=== PATIENT | female | born 1950 | race Caucasian/White ===

== ENCOUNTER 2016-12-10 07:09 | Day surgery (SDC) | payer BC ==
[~2016-12-10 07:09] MED LIST: Buffered Lidocaine 0.9% SYRIN* 5 ML/SYR SYRINGE INTRADERM ONE
[2016-12-10] MEDS ORDERED: Albuterol/Ipratropium NEB.SOL* Albuterol 2.5 MG/Ipratropium 0.5 MG 3 ML ONE (07:32)
[2016-12-10] MEDS ORDERED: Buffered Lidocaine 0.9% SYRIN* 5 ML/SYR SYRINGE ONE (07:33)
[2016-12-10] MEDS ORDERED: ceFAZolin VIAL(*) 1 GM in NS 0.9% 50 ML* 50 ML IVPB ONE (08:00)
[2016-12-10] MEDS ORDERED: ceFAZolin 1 GM in Dextrose (*) 1 GM/50 ML BAG IVPB ONE (08:00)
[2016-12-10] MEDS ORDERED: ceFAZolin 2 GM PREMIX(*) 2 GM/50 ML BAG IVPB ONE (08:13)
[2016-12-10] MEDS ORDERED: Lidocaine 1% MPF wEPI 200,000* 30 ML SDV ONE ×2 (08:53→09:26)
[2016-12-10] MEDS ORDERED: Methylene Blue 1% (ANTIDOTE)* 10 MG/ML 1 ML SDV VIAL IVPB ONE (08:53)
[2016-12-10] MEDS ORDERED: Mineral Oil Sterile, TOPICAL* 25 ML BTL ONE (08:54)
[2016-12-10] MEDS ORDERED: Bupivacaine 0.25% EPI 200,000* 30 ML SDV ONE (08:54)
[2016-12-10] MEDS ORDERED: Midazolam* 1 MG/ML 2 ML VIAL (2 MG) ONE (08:57)
[2016-12-10] MEDS ORDERED: fentaNYL* 50 MCG/ML 2 ML VIAL (100 MCG VIAL) ONE (08:57)
[2016-12-10] MEDS ORDERED: Lidocaine 2% PF * 5 ML VIAL ONE (10:52)
[2016-12-10] MEDS ORDERED: Propofol* 10 MG/ML 20 ML BTL IV PUSH ONE (10:52)
[2016-12-10 11:13] VITALS: BP 137/63
== END 2016-12-10 11:44 | disposition home or self-care (01) ==
LOC: OR 07:09
PROVIDERS: ATTEND Plastic Surgery
PROC: 0JB10ZZ Excision of Face Subcutaneous Tissue and Fascia, Open Approach (ICD-10-PCS; 2016-12-10)
PROC: 0JQ10ZZ Repair Face Subcutaneous Tissue and Fascia, Open Approach (ICD-10-PCS; principal; 2016-12-10 08:45)
DX: C44.319 Basal cell carcinoma of skin of other parts of face (principal); Z95.0 Presence of cardiac pacemaker; I48.91 Unspecified atrial fibrillation; Z79.01 Long term (current) use of anticoagulants; I10 Essential (primary) hypertension; G47.33 Obstructive sleep apnea (adult) (pediatric); E66.01 Morbid (severe) obesity due to excess calories; J44.9 Chronic obstructive pulmonary disease, unspecified; E11.9 Type 2 diabetes mellitus without complications; Z79.4 Long term (current) use of insulin; Z87.891 Personal history of nicotine dependence
CPT/HCPCS: 88305; 88331; 88332; A9270-GY; J0690; J2001; J2250; J2704; J3010

== ENCOUNTER 2018-08-08 15:07 | Emergency (ER) | payer MEDICARE ==
--- NOTE | 2018-08-08 16:19 | UC ---
Knee Pain HPI - HPI Summary HPI Summary: 68 yo female presents with LEFT knee pain. She tells me that 3 days ago she developed left knee pain without known injury. She tells me that she has a long history of chronic joint inflammation and pain. She has had extensive work ups for this and "noone has ever been able to find a reason". Usually she rests the joint and takes tylenol and symptoms improve. She has not taken any tylenol for this, but has been resting and elevating. She is in the process of getting an appointment with a golf caddie for further eval of her chronic symptoms. Denies numbness, tingling, or injury. - History of Current Complaint Chief Complaint: UCLowerExtremity Stated Complaint: KNEE INJURY Time Seen by Provider: 08/08/18 16:15 Hx Obtained From: Patient Onset/Duration: Gradual Onset Severity Initially: Mild Severity Currently: Moderate Pain Intensity: 5 Pain Scale Used: 0-10 Numeric - Allergies/Home Medications Allergies/Adverse Reactions: Allergies Allergy/AdvReac Type Severity Reaction Status Date / Time AASHISH Inhibitors Allergy Unknown Verified 08/08/18 16:26 Reaction Details latex Allergy Unknown Verified 08/08/18 16:26 Reaction Details angiotensin receptor blockers Allergy Unknown Uncoded 08/08/18 16:26 Reaction Details PMH/Surg Hx/FS Hx/Imm Hx Endocrine History: Diabetes Cardiovascular History: Cardiac Disease, Hypertension, Congestive Heart Failure , Atrial Fibrillation GI/ History: Gastroesophageal Reflux - Surgical History Surgical History: Yes Surgery Procedure, Year, and Place: pacemaker implantation - dr lopez. cervical cryo . bilateral cataract extraction - Family History Known Family History: Positive: Unknown - Social History Lives: With Family Alcohol Use: Rare Substance Use Type: None Smoking Status (MU): Former Smoker Amount Used/How Often: 1ppd for 30 years When Did the Patient Quit Smoking/Using Tobacco: 1991 - Immunization History Most Recent Influenza Vaccination: fall 2013 Most Recent Tetanus Shot: unk Most Recent Pneumonia Vaccination: unk Review of Systems All Other Systems Reviewed And Are Negative: Yes Constitutional: Positive: Negative Skin: Positive: Negative Respiratory: Positive: Negative Cardiovascular: Positive: Negative Neurovascular: Positive: Negative Musculoskeletal: Positive: Other: - Left knee pain Neurological: Positive: Negative Psychological: Positive: Negative Physical Exam - Summary Physical Exam Summary: GENERAL: NAD. WDWN. No pain distress. SKIN: No rashes, sores, lesions, or open wounds. CHEST: No accessory muscle use. Breathing comfortably and in no distress. CV: . Pulses intact popliteal, PT, and DP. Cap refill <2seconds MSK: LEFT KNEE: Mild TTP at patella. FROM, but pain with extension. Strength 5/ 5. No edema or obvious bony deformities. Unable to perform specialized testing due to pt body habitus. NEURO: Alert. Sensations intact and symmetric B/L LEs PSYCH: Age appropriate behavior. Triage Information Reviewed: Yes Vital Signs: Initial Vital Signs Temp 99.4 F 08/08/18 16:03 Pulse 87 08/08/18 16:03 Resp 20 08/08/18 16:03 BP 185/101 08/08/18 16:03 Pulse Ox 82 08/08/18 16:03 Vital Signs Reviewed: Yes Knee Pain Course/Dx - Course Course Of Treatment: XR: REPORT AND IMPRESSION: #. Suprapatellar joint effusion without gross fat fluid level. #. No fracture evident. #. Osteophytosis. Mild medial joint space narrowing. #. Nonfocal soft tissue swelling. #. Peripheral vascular calcifications. I am unsure the cause of her knee pain, but she does have multiple significant comorbidities and is significantly overweight, therefore it is most likely an arthritic pain. Advised to RICE and take tylenol and will try her with a lidoderm patch. Advised to f/u with rheumatology as soon as possible. - Differential Dx/Diagnosis Provider Diagnosis: Left knee pain Discharge - Sign-Out/Discharge Documenting (check all that apply): Patient Departure All imaging exams completed and their final reports reviewed: Yes - Discharge Plan Condition: Stable Disposition: HOME Prescriptions: Lidocaine PATCH 5%* [Lidoderm 5% Patch*] 1 patch TRANSDERM DAILY PRN #1 box PRN Reason: Pain Patient Education Materials: Knee Pain (ED) Referrals: Val Husain MD [Primary Care Provider] - Ozzy Sam MD [Medical Doctor] - As Soon As Possible Additional Instructions: If you develop a fever, shortness of breath, chest pain, new or worsening symptoms - please call your PCP or go to the ED. Your blood pressure was high at todays visit. Please see your primary provider within 4 weeks for recheck and re-evaluation. May take tylenol as directed for your discomfort. Apply ice to your knee to reduce pain and swelling. Please follow up with Rheumatology as soon as possible - Billing Disposition and Condition Condition: STABLE Disposition: Home - Attestation Statements Provider Attestation: I was available for consult. This patient was seen by the IZZY. The patient was not presented to, seen by, or examined by me. -Ashu
[2018-08-08 18:02] VITALS: BP 140/84
== END 2018-08-08 18:00 | disposition home or self-care (01) ==
LOC: UCEAST 15:07
DX: M25.562 Pain in left knee (principal); M25.462 Effusion, left knee; M25.762 Osteophyte, left knee; I25.10 Atherosclerotic heart disease of native coronary artery without angina pectoris; I11.0 Hypertensive heart disease with heart failure; I48.91 Unspecified atrial fibrillation; Z95.0 Presence of cardiac pacemaker; Z88.8 Allergy status to other drugs, medicaments and biological substances; Z91.040 Latex allergy status; Z87.891 Personal history of nicotine dependence
CPT/HCPCS: 99212; G0463

== ENCOUNTER 2018-09-04 12:19 | Inpatient (IN) | payer MEDICARE ==
[2018-09-04] MEDS ORDERED: NS 0.9% 1000 ML** 1,000 ML IV ONE (12:33)
[2018-09-04] MEDS ORDERED: Ondansetron INJ* 2 MG/ML VIAL IV ONE (12:34)
--- NOTE | 2018-09-04 12:39 | ED ---
Abdominal Pain/Female - HPI Summary HPI Summary: Patient is a 68 y/o female brought in by EMS who presents to the ED c/o abdominal pain. For the past 3 days shes had abdominal pain, N/V/D, and generalized weakness. Patient has not been able to keep any food down. The pain has been constant. She rates the pain as a 10/10 in severity with movement, but the pain is alleviated by lying flat and is currently rated a 6/10. As per EMS, her abdomen is firm and distended. PMHx DM, HTN, HLD, stage 3 kidney disease, morbid obesity. - History of Current Complaint Stated Complaint: ADBOMINAL PAIN,NAUSA,VOMITTING PER EMS Hx Obtained From: Patient, EMS Onset/Duration: Gradual Onset, Lasting Days - 3, Still Present Timing: Constant Severity Currently: Moderate Pain Intensity: 6 Pain Scale Used: 0-10 Numeric Location: Diffuse Aggravating Factor(s): Movement Alleviating Factor(s): Other: - Lying flat Allergies/Adverse Reactions: Allergies Allergy/AdvReac Type Severity Reaction Status Date / Time AASHISH Inhibitors Allergy Unknown Verified 08/08/18 16:26 Reaction Details latex Allergy Unknown Verified 08/08/18 16:26 Reaction Details angiotensin receptor blockers Allergy Unknown Uncoded 08/08/18 16:26 Reaction Details PMH/Surg Hx/FS Hx/Imm Hx Endocrine/Hematology History: Reports: Hx Diabetes, Hx Anemia - hx of, no longer takes iron Cardiovascular History: Reports: Hx Congestive Heart Failure, Hx Hypercholesterolemia, Hx Hypertension - on med, Hx Pacemaker/ICD, Other Cardiovascular Problems/Disorders - a-fib Denies: Hx Angina, Hx Coronary Artery Disease, Hx Myocardial Infarction, Hx Valvular Heart Disease Respiratory History: Reports: Hx Chronic Obstructive Pulmonary Disease (COPD), Hx Sleep Apnea - cpap, Other Respiratory Problems/Disorders - continuous oxygen at 4lpm Denies: Hx Asthma History: Reports: Other Problems/Disorders - stage 3 kidney disease Musculoskeletal History: Reports: Hx Arthritis - pt unsure Sensory History: Reports: Hx Cataracts - reports bilateral, Hx Contacts or Glasses - readers Denies: Hx Hearing Aid Opthamlomology History: Reports: Hx Cataracts - reports bilateral, Hx Contacts or Glasses - readers Neurological History: Reports: Other Neuro Impairments/Disorders - diabetic neuropathy - Cancer History Hx Chemotherapy: No Hx Radiation Therapy: No - Surgical History Surgery Procedure, Year, and Place: pacemaker implantation - dr lopez. cervical cryo 1969'. bilateral cataract extraction Hx Anesthesia Reactions: No - Immunization History Date of Tetanus Vaccine: PT STATES UNSURE Date of Influenza Vaccine: NONE Infectious Disease History: No Infectious Disease History: Denies: Traveled Outside the [place] in Last 30 Days - Family History Known Family History: Positive: Unknown - adopted - Social History Alcohol Use: Rare Hx Substance Use: No Substance Use Type: Reports: None Hx Tobacco Use: Yes Smoking Status (MU): Former Smoker Amount Used/How Often: 1ppd for 30 years Review of Systems Positive: Abdominal Pain, Vomiting, Diarrhea, Nausea Positive: Weakness - generalized All Other Systems Reviewed And Are Negative: Yes Physical Exam - Summary Physical Exam Summary: Appearance: chronically-ill appearing, mild pain distress Skin: warm, dry, reflects adequate perfusion Head/face: normal Eyes: EOMI, ERIC ENT: mucous membranes moist Neck: supple, non-tender Respiratory: CTA, breath sounds present, breathing unlabored Cardiovascular: tachycardic but regular rhythm, pulses symmetrical, no significant LE edema Abdomen: non-tender, rotund, grossly distended, firm Bowel Sounds: present Musculoskeletal: normal, strength/ROM intact Neuro: normal, sensory motor intact, A&Ox3 Triage Information Reviewed: Yes Vital Signs On Initial Exam: Initial Vitals Temp Pulse Resp BP Pulse Ox 101.3 F 102 19 112/68 94 09/04/18 12:22 09/04/18 12:22 09/04/18 12:22 09/04/18 12:22 09/04/18 12:22 Vital Signs Reviewed: Yes Diagnostics - Vital Signs Vital Signs Temp Pulse Resp BP Pulse Ox 09/04/18 12:22 101.3 F 102 19 112/68 94 - Laboratory Result Diagrams: 09/04/18 13:01 09/04/18 13:01 Lab Statement: Any lab studies that have been ordered have been reviewed, and results considered in the medical decision making process. - CT CT A/P CT Interpretation Completed By: Radiologist Summary of CT Findings: SMALL BOWEL OBSTRUCTION. PERICARDIAL EFFUSION. ATHEROSCLEROSIS. ED physician reviewed radiology report. - Ultrasound No standard instances Ultrasound Interpretation Completed By: ED Physician Summary of Ultrasound Findings: US performed at bedside by ED physician. Abdomen US: no ascites. - EKG 13:06 Cardiac Rate: Other Rate - Paced rhythm - [address] Segment: Non-Specific Summary of EKG Findings: Nl axis Abdominal Pain Fem Course/Dx - Course Course Of Treatment: Nurse's notes reviewed. Patient with distended abdomen with vomiting. CT scan consistent with small bowel obstruction. NG tube placed. Discussed with surgery who will follow in the hospital. Hospitalist to admit. Stable on admission. - Diagnoses Differential Diagnosis: Positive: Bowel Obstruction, Constipation, Diverticulitis, Other - AGE Provider Diagnoses: Small bowel obstruction - Provider Notifications Discussed Care Of Patient With: Faraz Nunez Time Discussed With Above Provider: 13:56 Instructed by Provider To: Other - Dr. Nunez will see the pt for a consult on the floor. At 14:37 Dr. Killian accepts pt for admission. Discharge - Sign-Out/Discharge Documenting (check all that apply): Patient Departure - Admit Patient Received Moderate/Deep Sedation with Procedure: No - Discharge Plan Condition: Fair Disposition: ADMITTED TO [facility] Referrals: Val Husain MD [Primary Care Provider] - - Billing Disposition and Condition Condition: FAIR Disposition: Admitted to [facility] - Attestation Statements Document Initiated by Yanete: Yes Documenting Scribe: Nicolle Barraza Provider For Whom Scribe is Documenting (Include Credential): Danny Maxwell MD Scribe Attestation: Nicolle Beltran scribed for Danny Maxwell MD on 09/04/18 at 1533. Scribe Documentation Reviewed: Yes Provider Attestation: The documentation as recorded by the Nicolle breaux accurately reflects the service I personally performed and the decisions made by mi, Danny Maxwell MD Status of Scribe Document: Viewed
[2018-09-04] MEDS ORDERED: LORazepam INJ* 2 MG/ML 1 ML VIAL IV PUSH ONE (12:53)
[2018-09-04 13:09] LABS: Hematocrit 39 % (33-41); Hemoglobin 12.6 g/dL (12.0-16.0); Mean Corpuscular HGB Conc 33 g/dL (31-36); Mean Corpuscular Hemoglobin 28 pg (27-31); Mean Corpuscular Volume 84 fL (80-97); Mean Platelet Volume 8.2 fL (7.4-10.4); Platelet Count 342 10^3/uL (150-450); Red Blood Count 4.58 10^6 /uL (3.70-4.87); Red Cell Distribution Width 17 % (10.5-15); White Blood Count 14.4 10^3/uL (3.5-10.8)
[2018-09-04 13:14] LABS: INR 2.26 (0.77-1.02)
[2018-09-04 13:26] LABS: ALT 11 U/L (7-52); AST 19 U/L (13-39); Albumin/Globulin Ratio 0.8 (1-3); Alkaline Phosphatase 116 U/L (34-104); Anion Gap 12 mmol/L (2-11); BUN/Creatinine Ratio 17.6 (8-20); Blood Urea Nitrogen 36 mg/dL (6-24); C Reactive Protein 273.55 mg/L (<8.01); CO2 Carbon Dioxide 24 mmol/L (22-32); Calcium 8.4 mg/dL (8.6-10.3); Chloride 97 mmol/L (101-111); EGFR African American 29.5 (>60); EGFR Non-African American 24.4 (>60); Glucose 154 mg/dL (70-100); Potassium 3.2 mmol/L (3.5-5.0); Sodium 133 mmol/L (135-145)
[2018-09-04 13:32] LABS: ABS Basophils 0 10^3/ul (0-0.2); ABS Eosinophils 0 10^3/ul (0-0.6); ABS Lymphocytes 0.3 10^3/ul (1.0-4.8); ABS Nucleated RBC 0 10^3/ul; Eosinophil % 0 %; Lymphocyte % 2.2 %; Nucleated Red Blood Cells % 0.1
[2018-09-04] MEDS ORDERED: NS 0.9% 1000 ML** 1,000 ML IV SCH (17:30)
[2018-09-04] MEDS ORDERED: Acetaminophen SUPP* 650 MG SUPP PR PRN (17:37)
[2018-09-04 17:44] LABS: Magnesium 1.7 mg/dL (1.9-2.7)
[2018-09-04] MEDS ORDERED: Dextrose 50% Syringe 50 ML* 25 GM/50 ML SYRINGE IV PUSH PRN (17:45)
[2018-09-04] MEDS ORDERED: Metoprolol Tartrate IV* 1 MG/ML 5 ML VIAL IV SCH (18:00)
[2018-09-04] MEDS ORDERED: Insulin GLARGINE(*) 1 UNITS UNIT SUBCUT SCH (18:00)
[2018-09-04 18:11] LABS: Influenza A Molecular NEGATIVE (Negative); Influenza B Molecular NEGATIVE (Negative)
[2018-09-04] MEDS ORDERED: Zosyn per Pharmacy* NOTE FOLLOW UP PRN (18:20)
[2018-09-04 18:21] LABS: Urine Appearance Cloudy; Urine Bacteria Absent (Absent); Urine Bilirubin Negative (Negative); Urine Blood 1+ (Negative); Urine Color Amber; Urine Glucose 2+(150 mg/dL) (Negative); Urine Ketones Negative (Negative); Urine Nitrite Negative (Negative); Urine Protein 3+(>=500 mg/dL) (Negative); Urine Red Blood Cell Trace(0-2/hpf) (Absent); Urine Specific Gravity 1.019 (1.010-1.030); Urine Urobilinogen Negative (Negative); Urine White Blood Cell Trace(0-5/hpf) (Absent)
[2018-09-04] MEDS ORDERED: Heparin DRIP 25,000 UNITS(*) 25,000 UNITS/500 ML BAG IV SCH (18:30)
[2018-09-04] MEDS ORDERED: Heparin VIAL(*) 5000 UNITS/ML VIAL (FIVE THOUSAND) IV PRN (18:58)
[2018-09-04] MEDS ORDERED: ZOSYN 3.375 GM x ONE DOSE over 30 miuntes IVPB ×2 (19:00)
[2018-09-04] MEDS ORDERED: Piperacillin/Tazobactam VIAL*) 3.375 GM/15 ML VIAL IVPB SCH (19:00)
[2018-09-04] MEDS ORDERED: KCL 20 MEQ/100 ML IVPREMIX* 20 MEQ/100 ML BAG IV ONE (19:02)
[2018-09-04] MEDS ORDERED: Magnesium Sulfate 2 GM IV* 2 GM/50 ML BAG IVPB ONE (19:02)
[2018-09-04] MEDS: Mometasone/Formoter 200/5 MDI INH SCH (20:53)
[2018-09-04] MEDS: Metoprolol Tartrate IV* 1 MG/ML 5 ML VIAL IV SCH (21:02)
[2018-09-04] MEDS: Insulin LISPRO* 1 UNITS UNIT SUBCUT SCH (21:02)
--- NOTE | 2018-09-04 21:20 | CONS ---
CC: Dr. Faraz Nunez; Dr. Husain CONSULTATION: DATE OF CONSULT: 09/04/18 HISTORY OF PRESENT ILLNESS: Ms. London is a 68-year-old female admitted to the hospitalist service with nausea, vomiting, unable to keep anything down, abdominal pain. This has been going on for a few days. It got bad enough that she came to the emergency room. She has no history of bowel obstruction. No previous abdominal surgeries. She does have a history of morbid obesity, hypertension, and renal insufficiency. PHYSICAL EXAMINATION: GENERAL: On examination, she is a morbidly obese female consistent with stated age. She does not appear acutely ill. She is not jaundiced. ABDOMEN: Abdomen is markedly obese. Mild diffuse tenderness. No rebound. No peritonitis. No guarding. Bowel sounds are very distant. There is some tympany. There are no scars or obvious hernias. Her body habitus somewhat limits the sensitivity of the examination. DIAGNOSTIC STUDIES/LAB DATA: Her laboratory studies show white blood count elevated at 14,000. Her INR is 2.2. Her electrolytes show renal insufficiency with a creatinine of 2.0 and she does have lactic acidosis and her liver chemistries are essentially normal. I have reviewed her CT scan. I disagree with the report by the radiologist. She does have a dilated stomach, dilated small-bowel. Virtually all the small bowel is dilated. There is a decompressed small bowel in the right lower quadrant. However, the transverse colon is moderately dilated with loops measuring up to 10 cm in diameter. Also, there is a long loop of sigmoid that is right under the hepatic flexure. This is only mildly dilated up to maybe 6 cm. The descending and proximal sigmoid colon are decompressed, as is the distal sigmoid and rectum. IMPRESSION: A 68-year-old female with what appears to be a small-bowel obstruction; however, there is some dilation of the transverse colon and possibly a loop of sigmoid colon, so it is not clear whether this is truly a small-bowel obstruction or some other pathology. I think nasogastric drainage and bowel rest and serial examinations, and I think there is reasonable likelihood this will start moving and pass without any surgical intervention. Of note, she would be at very high surgical risk if it did come to some kind of surgery, so certainly it would be in her best interest if we could get her through this without surgical intervention. We will continue to follow her along with you. [id number]/[facility] #: [id number] MTDD
--- NOTE | 2018-09-04 21:45 | HP ---
CC: Dr. Val Husain; Dr. Alex; Dr. Sam * HISTORY AND PHYSICAL: DATE OF ADMISSION: 09/04/18 PRIMARY CARE PROVIDER: Dr. Val Husain. ATTENDING PHYSICIAN: Dr. Killian * (dictated by Ethan Wu, ROCIO) CHIEF COMPLAINT: 1. Abdominal pain. 2. Nausea. HISTORY OF PRESENT ILLNESS: Ms. London is a 68-year-old female with a past medical history significant for diabetes, hypoxia, sleep apnea, atrial fibrillation, anemia, hypertension, hyperlipidemia; who presented to the emergency department today with complaints of abdominal pain x3 days. In addition, she has been experiencing nausea, vomiting, and diarrhea and generalized weakness and has not been able to keep any food down. While in the emergency department, a CT of the abdomen was performed and patient was noted to have a small bowel obstruction. In addition, labs were obtained and patient was noted to have an elevated WBC at 14.4 and elevated lactic acid at 3.0, elevated CRP at 273.55, and an elevated BNP at 371. Given the patient's status and these results, hospitalists were asked to evaluate for admission. PAST MEDICAL HISTORY: 1. Diabetes type 2. 2. Proteinuria. 3. Hypoxia. 4. Sleep apnea. 5. Atrial fibrillation. 6. Anemia. 7. Hypertension. 8. Hyperlipidemia. 9. Vitamin D deficiency. 10. Skin cancer. 11. CKD, stage 3. PAST SURGICAL HISTORY: 1. Pacemaker implantation. 2. Cervical cryo. HOME MEDICATIONS: 1. Diltiazem HCL ER 360 mg p.o. daily. 2. Ferrous gluconate 324 mg 1 tab by mouth once daily, if tolerates take twice daily. 3. Vitamin D 1000 units by mouth every day. 4. Rosuvastatin calcium 10 mg 1 tablet by mouth daily. 5. Humalog per sliding scale, max 40 units per day. 6. Furosemide 80 mg by mouth daily. 7. Advair 250/50 mcg inhalation 1 dose by mouth twice daily. 8. Magnesium oxide 400 mg 1 by mouth twice daily. 9. Senokot 1 to 2 tablets p.o. daily p.r.n. constipation. 10. Nasacort 1 spray in each nostril daily. 11. Metoprolol tartrate 125 mg 1 by mouth twice daily. 12. Omeprazole 20 mg 1 by mouth daily. 13. Acetaminophen 325 mg 2 tabs p.o. as needed. 14. Lantus 50 units twice a day. 15. Spiriva 18 mcg inhalation 1 puff by mouth daily. 16. Warfarin sodium 5 mg, take 1 tablet by mouth daily as directed. Take half a tablet on . ALLERGIES: AASHISH INHIBITOR, ARBS, ADHESIVE, and LATEX. FAMILY HISTORY: The patient is adopted and has unknown family history. SOCIAL HISTORY: The patient is a previous smoker, she quit in 1991. She reports approximately 20 years of 2 packs per day. The patient reports seldom alcohol use. The patient denies drug use. The patient lives at home with her . The patient ambulates with a walker. The patient's surrogate decision maker will be her , Ozzy London, number [phone]. REVIEW OF SYSTEMS: The 14-point review of system was performed and all pertinent positive and negative findings are in the HPI. All other are negative. PHYSICAL EXAMINATION GENERAL: Ms. London is a 68-year-old female who is morbidly obese, sitting in bed, appears in no acute distress, appears stated age. VITAL SIGNS: Temp 100.4, HR 101, RR 21, O2 saturation 100% on 3 L, BP 114/71. HEENT: EOMs intact. PERRLA. Oral mucosa was moist without lesions. Posterior pharynx was clear. NG tube in place. NECK: Full range of motion. No lymphadenopathy. RESPIRATORY: Symmetrical chest expansion. No accessory muscle use. Lungs are clear to auscultation. No rhonchi, wheezes, or rubs. CARDIOVASCULAR: Irregular rhythm. S1/S2 present. No murmurs, rubs, or gallops. ABDOMEN: Abdomen is soft. Abdomen is tender to palpation throughout. Bowel sounds are hypoactive. EXTREMITIES: Skin is warm and smooth bilaterally. No edema. No clubbing or cyanosis. Pedal pulses 2+ bilaterally. MUSCULOSKELETAL: Full range of motion. No deformities. NEURO: Alert, awake, and oriented x4. Moves all extremities. Motor strength is 5/5 in the upper and lower extremities bilaterally. SKIN: Skin is grossly intact without lesions. DIAGNOSTIC STUDIES/LAB DATA: WBC 14.4, hemoglobin 12.6, hematocrit 39, platelets 342. INR 2.26. Sodium 133, potassium 3.2, chloride 97, carbon dioxide 24, BUN 36, creatinine 2.04, glucose 154, lactic acid 3.0, calcium 8.4, magnesium 1.7. Alk phos 116. C-reactive protein 273. BNP 371. Albumin 3.0, lipase less than 10. CT abdomen and pelvis: Impression: Small bowel obstruction. Pericardial effusion. Atherosclerosis. EKG: Impression: Paced, rate 104. ASSESSMENT AND PLAN: Ms. London is a 68-year-old female with a past medical history significant for type 2 diabetes, hypoxia, sleep apnea, atrial fibrillation with a pacemaker, anemia, hypertension, hyperlipidemia, vitamin D deficiency, skin cancer, chronic kidney disease; who presented to the emergency room today with complaints of nausea, vomiting, and abdominal pain and was found to have a small bowel obstruction. In addition, she was found to meet SIRS criteria. The patient will be admitted inpatient for: 1. Small bowel obstruction: The patient has an NG tube placed which is draining. The patient will be n.p.o. Surgical services have been consulted. 2. Systemic inflammatory response syndrome criteria: The patient meets SIRS criteria; upon admission, she has a fever of 100.3, she is tachycardic with a heart rate greater than 90, she is tachypneic with respirations greater than 20. Suspected source would be infection or ischemic process involving bowel. The patient was started on Zosyn. The patient received a fluid bolus of 1000 mL in the emergency room. I have restarted fluid at 100 mL an hour of normal saline. I am hesitant to give patient her full fluid resuscitation status as the patient does not carry a history of congestive heart failure, but her BNP elevated, she is on a very large dose of Lasix, and has a cardiac history. We will monitor this, and if her pressure decreases, we will readdress this and give her the fluid bolus. 3. Type 2 diabetes: The patient will receive Lantus at a lower dose of 25 units b.i.d. The patient will be placed on a sliding scale q.6 hours while she is n.p.o. 4. Hypoxia: The patient reports that she wears 3 to 5 L at home. The patient will receive supplemental oxygen while inpatient to keep O2 saturation above 92% . 5. Sleep apnea: The patient will be given hospital CPAP machine as she does not have her's with her. 6. Atrial fibrillation: The patient has a history of atrial fibrillation and has a dual pacemaker that was placed 10 years ago. I cannot find a recent echocardiogram. The patient is on rate control agents of diltiazem and metoprolol. Given patient is n.p.o. and she will not receive these medications, we will start by giving the patient metoprolol 10 mg IV q.6 hours with holding parameters. If this is not sufficient to keep the patient rate controlled, then we will add diltiazem IV. The patient is also on Coumadin due to atrial fibrillation. Since patient is n.p.o., she will place on heparin drip. 7. Anemia: The patient currently is showing no signs of anemia. 8. Hypertension: The patient is on furosemide, diltiazem, and metoprolol. As mentioned above, the patient will be receiving metoprolol IV. We will monitor patient's blood pressure accordingly. The patient is currently normotensive. 9. Hyperlipidemia: The patient is on rosuvastatin at home. We will hold this given her n.p.o. status. 10 Vitamin D deficiency: The patient is n.p.o., we will hold patient's vitamin D. 11. FEN: The patient is n.p.o. The patient will receive normal saline at 100 mL per hour. 12. Code status: The patient is a full code. 13. DVT prophylaxis: The patient will be on a heparin drip. 14. Disposition: The patient will be admitted to the medical floor. I suspect the patient will be inpatient for 3 or 4 days. We are awaiting surgical consult. 15. Surrogate decision making is her , information as above. TIME SPENT: Approximately 60 minutes was spent on this admission, greater than half the time was spent with the patient and caregiver obtaining my history and performing the physical exam and reviewing my plan of care. This case has been reviewed with my attending, Dr. Killian, who agrees with my plan of care. ETHAN WU, ROCIO [id number]/[facility] #: [id number] MADELAINE
[2018-09-04] MEDS: Pantoprazole IV* 40 MG IV SCH (22:18)
[2018-09-04] MEDS: Morphine INJ* 2 MG/ML 1 ML SYRINGE (TWO MG - NEW SYRINGE VERSION) IV PRN (22:43)
[2018-09-05] MEDS: Insulin LISPRO* 1 UNITS UNIT SUBCUT SCH ×5 (01:10→23:17)
[2018-09-05] MEDS: Metoprolol Tartrate IV* 1 MG/ML 5 ML VIAL IV SCH ×4 (01:11→18:20)
[2018-09-05] MEDS: ZOSYN 3.375 GM Q8H per EXTENDED INFUSION IVPB SCH ×6 (01:54→16:17)
[2018-09-05] MEDS: NS 0.9% 1000 ML** 1,000 ML IV SCH ×3 (01:54→19:50)
[2018-09-05] MEDS: Ondansetron INJ* 2 MG/ML VIAL IV PRN (01:58)
[2018-09-05] MEDS: Morphine INJ* 2 MG/ML 1 ML SYRINGE (TWO MG - NEW SYRINGE VERSION) IV PRN ×3 (05:14→23:22)
[2018-09-05 06:19] LABS: Hematocrit 36 % (33-41); Hemoglobin 11.7 g/dL (12.0-16.0); Mean Corpuscular HGB Conc 32 g/dL (31-36); Mean Corpuscular Hemoglobin 27 pg (27-31); Mean Corpuscular Volume 84 fL (80-97); Mean Platelet Volume 8.6 fL (7.4-10.4); Platelet Count 308 10^3/uL (150-450); Red Blood Count 4.34 10^6 /uL (3.70-4.87); Red Cell Distribution Width 18 % (10.5-15); White Blood Count 16.3 10^3/uL (3.5-10.8)
[2018-09-05 06:36] LABS: Albumin 2.6 g/dL (3.2-5.2); Albumin/Globulin Ratio 0.7 (1-3); BUN/Creatinine Ratio 14.6 (8-20); Calcium 8.1 mg/dL (8.6-10.3); EGFR African American 15.6 (>60); EGFR Non-African American 12.9 (>60); Globulin 3.7 g/dL (2-4); Potassium 3.7 mmol/L (3.5-5.0); Total Bilirubin 1.7 mg/dL (0.2-1.0); Total Protein 6.3 g/dL (6.4-8.9)
[2018-09-05 06:58] LABS: ABS Basophils 0 10^3/ul (0-0.2); ABS Eosinophils 0 10^3/ul (0-0.6); ABS Lymphocytes 0.9 10^3/ul (1.0-4.8); ABS Monocytes 1.9 10^3/ul (0-0.8); ABS Neutrophils 13.5 10^3/ul (1.5-7.7); ABS Nucleated RBC 0 10^3/ul; Eosinophil % 0 %; Lymphocyte % 5.7 %; Nucleated Red Blood Cells % 0.3
--- NOTE | 2018-09-05 07:44 | PN ---
Progress Note - Progress Note Date of Service: 09/05/18 Note: Abd pain, SBO T99, VS noted Still with abd pain, No N/V Abd obese, tender throughout, left the worst WBC and lactic acid have increased Impr: SBO, not improving, now with increasing parameters D/W Dr Luong (regional medical director) He will see pt for poss exploration
[2018-09-05] MEDS ORDERED: NS 0.9% 500 ML* 500 ML IV ONE (07:57)
[2018-09-05] MEDS: Insulin GLARGINE(*) 1 UNITS UNIT SUBCUT SCH ×2 (08:38→22:04)
[2018-09-05 09:45] LABS: Activated Partial Thrombo Time 80.5 seconds (26.0-36.3); INR 3.15 (0.77-1.02)
[2018-09-05] MEDS: Tiotropium CAP.INH* CAP.INH/18 MCG (USE ORDER SET !) INH SCH (09:57)
[2018-09-05] MEDS: Mometasone/Formoter 200/5 MDI INH SCH ×2 (09:57→23:11)
[2018-09-05] MEDS ORDERED: Perflutren Lipid Microsphere* 3 ML VIAL ONE (12:27)
--- NOTE | 2018-09-05 13:28 | PN ---
Subjective Date of Service: 09/05/18 Interval History: Ms. London is feeling poor today. She is having significant abd pain and feels bloated. She has been told by her PCP in the past that she would not be a good surgical candidate and she is understanding of this. Nursing requested hold parameters on metoprolol. Otherwise no concerns or complaints. Family History: Unchanged from Admission Social History: Unchanged from Admission Past Medical History: Unchanged from Admission Objective Active Medications: Acetaminophen (Tylenol Supp*) 650 mg TX Q6H PRN FEVER/PAIN Dextrose (D50w Syringe 50 Ml*) 12.5 gm IV PUSH .FOR FS < 60 - SS PRN FS < 60 Sodium Chloride (Ns 0.9% 1000 Ml) 1,000 mls @ 100 mls/hr IV PER RATE VANESSA Piperacillin Sod/Tazobactam (Sod 3.375 gm/ Sodium Chloride) 100 mls @ 25 mls/ hr IVPB Q8H [facility] Insulin Glargine (Lantus(*)) 25 units SUBCUT 0900,2100 VANESSA Insulin Human Lispro (Humalog*) 0 units SUBCUT Q6HR VANESSA; Protocol Metoprolol Tartrate (Lopressor Iv*) 10 mg IV Q6H VANESSA Mometasone Furoate/Formoterol Fumar (Dulera 200/5 Mdi*) 2 puff INH BID VANESSA Morphine Sulfate (Morphine Inj ((Syringe))*) 2 mg IV Q4H PRN PAIN - MILD Ondansetron HCl (Zofran Inj*) 4 mg IV Q6H PRN NAUSEA Pantoprazole Sodium (Protonix Iv*) 40 mg IV Q24H VANESSA Tiotropium [place] (Spiriva Cap.Inh*) 1 cap INH DAILY [facility] Vital Signs - 8 hr 09/05/18 09/05/18 09/05/18 05:35 06:30 07:27 Temperature 99.3 F Pulse Rate 96 Respiratory 18 20 Rate Blood Pressure 103/55 (mmHg) O2 Sat by Pulse 98 96 Oximetry 09/05/18 09/05/18 09/05/18 07:53 08:56 11:30 Temperature 98.5 F 99.5 F Pulse Rate 102 97 Respiratory 20 20 20 Rate Blood Pressure 115/61 113/57 (mmHg) O2 Sat by Pulse 95 96 Oximetry Oxygen Devices in Use Now: Nasal Cannula - 2L Appearance: Middle-aged female laying in bed in NAD Eyes: No Scleral Icterus Ears/Nose/Mouth/Throat: Mucous Membranes Moist Neck: NL Appearance and Movements; NL JVP, Trachea Midline Respiratory: Symmetrical Chest Expansion and Respiratory Effort, Clear to Auscultation Cardiovascular: NL Sounds; No Murmurs; No JVD, RRR Abdominal: - - Large, distended, tender to palpation throughout Skin: No Rash or Ulcers Neurological: Alert and Oriented x 3 Lines/Tubes/Other Access: Clean, Dry and Intact Peripheral IV Result Diagrams: 09/05/18 06:11 09/05/18 06:11 Assess/Plan/Problems-Billing Assessment: Ms. London is a 68 yo F with PMH of dCHF, DM2, afib, HARVEY, HTN, HLD, CKD stage 3 , chronic hypoxic respiratory failure on 3-5L NC at baseline; who presented to the ED with c/o abd pain and nausea and was found to have an SBO. - Patient Problems (1) Small bowel obstruction Code(s): K56.609 - UNSP INTESTNL OBST, UNSP TO PARTIAL VERSUS COMPLETE OBST Comment: - NG tube in place - Appreciate Surgery consult; plan initially was for surgery today, though she is a very poor surgical candidate d/t her PMH and she was agreeable to holding off at this point - Surgery is following closely as surgical intervention may ultimately be necessary (2) Sepsis Comment: - Met criteria on admission with fever, tachycardia, tachypnea, lactic acidosis ; received fluid bolus - Suspect peritonitis is the source - Lactic still elevated this morning; now resolved after another 500mL bolus - Caution with IVF d/t history of CHF - Continue Zosyn (3) Ehamh-sa-llwkvzc kidney injury Code(s): N17.9 - ACUTE KIDNEY FAILURE, UNSPECIFIED; N18.9 - CHRONIC KIDNEY DISEASE, UNSPECIFIED Comment: - Baseline CKD stage 3, creatinine increased from baseline - Secondary to hypovolemia - Continue IVF (4) Diastolic congestive heart failure Code(s): I50.30 - UNSPECIFIED DIASTOLIC (CONGESTIVE) HEART FAILURE Comment: - Not in exacerbation - Last echo in 2014 showed EF 50-55%; will repeat echo today - Hold furosemide d/t hypovolemia - Continue metoprolol (5) Chronic respiratory failure with hypoxia Comment: - No acute changes - Continue oxygen to maintain sats >92% (6) Atrial fibrillation Code(s): I48.91 - UNSPECIFIED ATRIAL FIBRILLATION Comment: - Rate controlled, paced - Placed on heparin drip on admission as she typically takes warfarin, though this was stopped this morning per Surgery's recommendation as she may need to go to the OR urgently - Continue metoprolol IV while NPO; will add diltiazem IV if rate becomes tachycardic (7) Hypertension Code(s): I10 - ESSENTIAL (PRIMARY) HYPERTENSION Comment: - Normotensive, SBP 110s - Continue metoprolol (8) Type 2 diabetes mellitus Comment: - Recent A1c in July was 7.1% - Continue Lantus, Lispro SS (9) HARVEY (obstructive sleep apnea) Code(s): G47.33 - OBSTRUCTIVE SLEEP APNEA (ADULT) (PEDIATRIC) Comment: - CPAP (10) Hyperlipidemia Code(s): E78.5 - HYPERLIPIDEMIA, UNSPECIFIED Comment: - Hold statin while NPO (11) DVT prophylaxis Comment: - SCDs only d/t possible need for surgery (12) Full code status Code(s): Z78.9 - OTHER SPECIFIED HEALTH STATUS Comment: Status and Disposition: Inpatient. Anticipate d/c home when medically stable. Attending: Angella Killian
--- NOTE | 2018-09-05 15:50 | ECHO ---
Patient: RENATA BUENROSTRO [facility] Rec#: [id number] : 1950 Date: 09/05/2018 Age: 68y Height: 165 cm / 65.0 in Weight: 148 kg / 326.2 lbs Sex: F BSA: 2.43 Room#: [facility] Admit Date#: 09/04/2018 Type: Inpatient Referring: Gertrude Marks Reading: Luigi Haynes MD Soft Iron Inspector: Lori Helton RDCS CC: Joe Alfonso MD CC: Val Husain MD Transthoracic Echocardiogram Indication: CHF BP: 115/61 HR: 118 Rhythm: NSR with PACs Findings History: Morbid obesity,HTN,HLD,DM,HARVEY,a-fib s/p pacer,former smoker. Technical Comments: The study is technically limited due to patient body habitus. Definity used to enhance iamges. Completed at 1342. The study is technically limited due to the patient's smoking history. The study was technically limited due to the patient's inability to lay in the left lateral decubitus position. Left Ventricle: The left ventricular chamber size is normal. Moderate concentric left ventricular hypertrophy is observed. Global left ventricular wall motion and contractility are within normal limits. There is normal left ventricular systolic function. The estimated ejection fraction is 55-60%. There is abnormal ventricular septal wall motion consistent with right ventricular pacemaker. The assessment of diastolic function is non-diagnostic. Left Atrium: The left atrium is not well visualized. Right Ventricle: The right ventricular cavity size is normal. The right ventricular global systolic function is normal. The septum has abnormal paradoxical motion consistent with RV pacemaker. A pacemaker wire is visualized in the right ventricle. Right Atrium: The right atrial cavity size is normal. A pacemaker wire is visualized in the right atrium. Aortic Valve: The aortic valve is trileaflet. The aortic valve leaflets are mildly thickened. There is evidence of aortic sclerosis without stenosis. There is no evidence of aortic regurgitation. There is borderline aortic stenosis present. Mitral Valve: There is mitral annular calcification. The mitral valve leaflets are mildly thickened. There is a trace of mitral regurgitation. There is no evidence of mitral stenosis. Tricuspid Valve: The tricuspid valve leaflets are normal. There is trace tricuspid regurgitation. There is evidence that pulmonary hypertension may be underestimated. There is no tricuspid stenosis. Pulmonic Valve: The pulmonic valve appears normal. There is no evidence of pulmonic regurgitation. There is no pulmonic stenosis. Pericardium: There is no significant pericardial effusion. A pericardial fat pad is visualized. Aorta: There is no dilatation of the ascending aorta. There is no dilatation of the aortic arch. There is no dilation of the aortic root. Pulmonary Artery: The main pulmonary artery is not well visualized. Venous: The venous system is not well visualized. Contrast: Definity was used to optimize study. A total of 5 ml used. Intravenous contrast was used to enhance endocardial border definition. Summary: There are no significant changes when compared to the previous study done on 08/23/14 Conclusions The study was technically limited due to the patient's inability to lay in the left lateral decubitus position. Moderate concentric left ventricular hypertrophy is observed. Global left ventricular wall motion and contractility are within normal limits. There is normal left ventricular systolic function. The estimated ejection fraction is 55-60%. The septum has abnormal paradoxical motion consistent with RV pacemaker. There is evidence of aortic sclerosis without stenosis. There is no evidence of aortic regurgitation. There is a trace of mitral regurgitation. The mitral valve leaflets are mildly thickened. There is trace tricuspid regurgitation. There is evidence that pulmonary hypertension may be underestimated. There is no significant pericardial effusion. Measurements Name Value Normal Range RVIDd (AP) 2D 2.9 cm (0.9 - 2.6) IVSd (2D) 1.2 cm (0.6 - 1) LVPWd (2D) 1.4 cm (0.6 - 1) LVIDd (2D) 4.7 cm (3.6 - 5.4) LVIDs (2D) 3.3 cm - LV FS (2D) 30 % (25 - 45) Aortic Annulus 1.7 cm (1.4 - 2.6) Ao root diameter (2D) 2.8 cm (2.1 - 3.5) Ascending Ao 3 cm (2.1 - 3.4) Aortic arch 2.6 cm (1.8 - 3.4) Descending Ao 0.6 cm - Name Value Normal Range MV E-wave Vmax 1.1 m/sec - MV deceleration time 177 msec - MV A-wave Vmax 1.3 m/sec - MV E:A ratio 0.8 ratio - LV septal e' Vmax 0.06 m/sec - LV lateral e' Vmax 0.06 m/sec - LV E:e' septal ratio 18.33 ratio - LV E:e' lateral ratio 18.33 ratio - Name Value Normal Range AV Vmax 1.8 m/sec - AV VTI 24.3 cm - AV peak gradient 12 mmHg - AV mean gradient 6 mmHg - LVOT Vmax 0.8 m/sec - LVOT VTI 14 cm - LVOT peak gradient 3 mmHg - LVOT mean gradient 1 mmHg - Name Value Normal Range TR Vmax 2.4 m/sec - TR peak gradient 23 mmHg - RAP 8 mmHg - RVSP 31 mmHg - Name Value Normal Range PV Vmax 1.3 m/sec - PV peak gradient 6 mmHg -
--- NOTE | 2018-09-05 17:20 | CONS ---
CC: Dr. Val Husain; [facility]; Dr. Sam; Dr. Hwang * CONSULTATION REPORT: ADDENDUM: An addendum to a consultation done by Dr. Nunez. DATE OF CONSULT: 09/05/18 REFERRING PROVIDER: Dr. Angella Killian, hospitalist. REASON FOR CONSULTATION: Abdominal pain with nausea and vomiting. Please see the separate dictated consultation note done earlier today. This is a consultation that adds to the events over the course of the day. I discussed her care with Dr. Nunez, who initially saw her early this morning in consultation as she was admitted with several days of abdominal pain, distention, nausea, and vomiting. She earlier had copius amounts of diarrhea and this started after she ate a stake and cheese sandwich on evening. She became weaker and then presented to the emergency room. She underwent a CT scan of the abdomen and pelvis. There was a concern for possible small-bowel obstruction and she was noted to have an elevated white blood cell count and lactic acid and an elevated creatinine above her baseline. A CT scan was reviewed and it is a difficult scan to interpret, although there did appear to be gas in the right and transverse colon with some dilated small bowel, which was not completely consistent with a small-bowel obstruction; however, due to the amount of discomfort, other diagnosis such as mesenteric ischemia or other source of inflammatory process needs to be ruled out. Laboratory workup over the course of the first night included a white blood cell count that went up to 16,000. She was noted to have a lactic acid that went from 2.2 to 2.9. Also noted was a significant increase in the creatinine from 2.04 to 3.55 as well as an elevated BUN. Carbon dioxide was 21 and sodium was down to 131. She had an INR of 3.15; however, this was on a heparin drip. She had been on Coumadin for her atrial fibrillation. PHYSICAL EXAM: On physical exam, she was awake and alert and actually quite pleasant. She was initially noted to be afebrile. Heart rate was in 90s and 100s. Most recent blood pressure at 113/57. On abdominal exam, she is massively obese. There are no prior surgical incisions. There are no hernias noted. She had diminished bowel sounds throughout. She has generalized tenderness throughout with rebound and guarding consistent with peritoneal irritation. IMPRESSION: Abdominal discomfort with the above history. Worsened finding including an increase in her white blood cell count as well as lactic acid and worsening renal function. She, however, did not receive much fluid overnight in terms of resuscitation. After giving fluid, her lactic acid did return to 2 later in the morning. I discussed all the findings above several times and several different visits over the course of the morning with the patient. I was not able to initially contact her on the phone. The patient was on intravenous heparin as a bridge for her Coumadin and this was discontinued. In light of her laboratory changes and her physical examination, I did feel that a diagnostic laparoscopy at a minimum and probably an exploratory laparotomy was indicated to rule out intra-abdominal source of sepsis, i.e., possible bowel obstruction with internal hernia and ischemia or primary mesenteric ischemia. She does have a recent history of diarrhea, nausea, and vomiting. This also may be an infectious etiology that does not require surgical intervention but I cannot be sure of this at this time. After my discussion with her, she felt that in previous discussions with her primary care provider, Dr. Husain, that she was not an operative candidate and was told that she would not survive the surgery. I did discuss this with her and explain to her that certainly she is at very high risk for any surgical intervention in terms of her pulmonary status, morbid obesity (BMI of 55), chronic renal insufficiency with possibility of termite control servicer ventilator dependence , prolonged ICU stay and the possibility of . I also explained clearly that if there is a surgical etiology to her abdominal findings and sepsis and this is not remedied with surgery, she will not survive. After a long discussion with her, and discussing the pros and the risks, benefits, and alternatives to surgery and also in discussion with her who did come into the hospital, she has decided she would not like to proceed with any surgical intervention due to the high risks and her personal belief that she does not want to be kept alive on long-term possible life- sustaining medications and equipment that may be necessary after surgery. Certainly, I will respect this decision; and hopefully, there is the possibility that this is an inflammatory and/or infectious etiology and she will respond and improve with nonoperative management and intravenous antibiotics alone. For now, we will continue with the aggressive IV fluid resuscitation and the nasogastric tube. We should continue with the IV Zosyn. The heparin will be held. We will follow her closely with you. Thank you very much for this consultation. [id number]/[facility] #: [id number] MADELAINE
[2018-09-05] MEDS: Pantoprazole IV* 40 MG IV SCH (19:52)
[2018-09-06] MEDS: ZOSYN 3.375 GM Q8H per EXTENDED INFUSION IVPB SCH ×4 (00:21→08:53)
[2018-09-06] MEDS: Metoprolol Tartrate IV* 1 MG/ML 5 ML VIAL IV SCH ×4 (00:23→18:11)
[2018-09-06] MEDS: NS 0.9% 1000 ML** 1,000 ML IV SCH ×3 (00:23→10:51)
[2018-09-06 04:37] LABS: Urine Creatinine Concentration 111.23 mg/dL; Urine Sodium Concentration < 18 mmol/L
[2018-09-06] MEDS: Morphine INJ* 2 MG/ML 1 ML SYRINGE (TWO MG - NEW SYRINGE VERSION) IV PRN ×4 (05:47→22:57)
[2018-09-06] MEDS: Insulin LISPRO* 1 UNITS UNIT SUBCUT SCH ×3 (05:54→17:51)
[2018-09-06 08:02] LABS: INR 3.39 (0.77-1.02)
[2018-09-06 08:14] LABS: Albumin 2.3 g/dL (3.2-5.2); Albumin/Globulin Ratio 0.7 (1-3); BUN/Creatinine Ratio 14.3 (8-20); Calcium 7.5 mg/dL (8.6-10.3); EGFR African American 10.8 (>60); EGFR Non-African American 8.9 (>60); Globulin 3.5 g/dL (2-4); Magnesium 2.3 mg/dL (1.9-2.7); Potassium 3.8 mmol/L (3.5-5.0); Total Bilirubin 1.8 mg/dL (0.2-1.0); Total Protein 5.8 g/dL (6.4-8.9)
[2018-09-06 08:17] LABS: Hematocrit 34 % (33-41); Hemoglobin 11.2 g/dL (12.0-16.0); Mean Corpuscular HGB Conc 33 g/dL (31-36); Mean Corpuscular Hemoglobin 27 pg (27-31); Mean Corpuscular Volume 83 fL (80-97); Mean Platelet Volume 8.8 fL (7.4-10.4); Platelet Count 293 10^3/uL (150-450); Red Blood Count 4.14 10^6 /uL (3.70-4.87); Red Cell Distribution Width 18 % (10.5-15)
[2018-09-06] MEDS ORDERED: NS 0.9% 1000 ML** 1,000 ML IV ONE (08:48)
[2018-09-06 08:57] LABS: ABS Basophils 0 10^3/ul (0-0.2); ABS Eosinophils 0 10^3/ul (0-0.6); ABS Lymphocytes 0.6 10^3/ul (1.0-4.8); ABS Monocytes 1.4 10^3/ul (0-0.8); ABS Nucleated RBC 0.1 10^3/ul; Eosinophil % 0 %; Lymphocyte % 4.5 %; Nucleated Red Blood Cells % 0.4
[2018-09-06] MEDS: Mometasone/Formoter 200/5 MDI INH SCH (08:57)
[2018-09-06] MEDS: Insulin GLARGINE(*) 1 UNITS UNIT SUBCUT SCH ×2 (08:57→22:27)
[2018-09-06] MEDS: Tiotropium CAP.INH* CAP.INH/18 MCG (USE ORDER SET !) INH SCH (08:58)
--- NOTE | 2018-09-06 12:45 | PN ---
Progress Note - Progress Note Date of Service: 09/06/18 SOAP: Subjective: Abdominal pain about the same-severe She wants to drink No flatus or BM Objective: Temp Pulse Resp BP Pulse Ox 98.2 F 86 18 125/54 95 09/06/18 11:05 09/06/18 11:05 09/06/18 11:05 09/06/18 11:05 09/06/18 11:05 Intake & Output 09/04/18 09/05/18 09/06/18 09/07/18 06:59 06:59 06:59 06:59 Intake Total 110 3351 1978 Output Total 0 1994 Balance 110 1356 1978 Weight 325 lb 1.6 oz 331 lb 8 oz Intake: IV Fluids 110 2951 1978 ABX - ZOSYN 55 211 NS 2740 1978 mag 55 Oral 0 400 Output: NG Tube Drainage Amount 0 1800 Urine 0 Francis 195 Other: Estimated Void Small Small # Bowel Movements 0 PEX: Awake and alert Abd is markedly distended and tender throughout with guarding. No bowel sounds present. Laboratory Results - last 24 hr 09/05/18 09/05/18 09/06/18 17:48 23:16 04:00 WBC RBC Hgb Hct MCV MCH MCHC RDW Plt Count MPV Neut % (Auto) Lymph % (Auto) Cooke % (Auto) Eos % (Auto) Baso % (Auto) Absolute Neuts (auto) Absolute Lymphs (auto) Absolute Monos (auto) Absolute Eos (auto) Absolute Basos (auto) Absolute Nucleated RBC Nucleated RBC % INR (Anticoag Therapy) Sodium Potassium Chloride Carbon Dioxide Anion Gap BUN Creatinine Est GFR ( Amer) Est GFR (Non-Af Amer) BUN/Creatinine Ratio Glucose POC Glucose (mg/dL) 133 H 118 H Calcium Magnesium Total Bilirubin AST ALT Alkaline Phosphatase Total Protein Albumin Globulin Albumin/Globulin Ratio Urine Collection Time Urine Total Volume Ur Creatinine Concen 111.23 U Sodium Concentration < 18 Ur Urea Nitrogen Conc Urea Nitrogen Clear 09/06/18 09/06/18 09/06/18 04:10 05:47 07:44 WBC RBC Hgb Hct MCV MCH MCHC RDW Plt Count MPV Neut % (Auto) Lymph % (Auto) [place]oke % (Auto) Eos % (Auto) Baso % (Auto) Absolute Neuts (auto) Absolute Lymphs (auto) Absolute Monos (auto) Absolute Eos (auto) Absolute Basos (auto) Absolute Nucleated RBC Nucleated RBC % INR (Anticoag Therapy) Sodium 134 L Potassium 3.8 Chloride 99 L Carbon Dioxide 22 Anion Gap 13 H BUN Cancelled 70 H Creatinine 4.88 H Est GFR ( Amer) 10.8 Est GFR (Non-Af Amer) 8.9 BUN/Creatinine Ratio 14.3 Glucose 114 H POC Glucose (mg/dL) 119 H Calcium 7.5 L Magnesium 2.3 Total Bilirubin 1.80 H AST 93 H ALT 46 Alkaline Phosphatase 95 Total Protein 5.8 L Albumin 2.3 L Globulin 3.5 Albumin/Globulin Ratio 0.7 L Urine Collection Time Cancelled Urine Total Volume Cancelled Ur Creatinine Concen U Sodium Concentration Ur Urea Nitrogen Conc Cancelled Urea Nitrogen Clear Cancelled 09/06/18 09/06/18 09/06/18 07:44 07:45 12:22 WBC 14.0 H RBC 4.14 Hgb 11.2 L Hct 34 MCV 83 MCH 27 MCHC 33 RDW 18 H Plt Count 293 MPV 8.8 Neut % (Auto) 85.2 Lymph % (Auto) 4.5 Cooke % (Auto) 10.2 Eos % (Auto) 0 Baso % (Auto) 0.1 Absolute Neuts (auto) 12.0 H Absolute Lymphs (auto) 0.6 L Absolute Monos (auto) 1.4 H Absolute Eos (auto) 0 Absolute Basos (auto) 0 Absolute Nucleated RBC 0.1 Nucleated RBC % 0.4 INR (Anticoag Therapy) 3.39 H Sodium Potassium Chloride Carbon Dioxide Anion Gap BUN Creatinine Est GFR ( Amer) Est GFR (Non-Af Amer) BUN/Creatinine Ratio Glucose POC Glucose (mg/dL) 111 H Calcium Magnesium Total Bilirubin AST ALT Alkaline Phosphatase Total Protein Albumin Globulin Albumin/Globulin Ratio Urine Collection Time Urine Total Volume Ur Creatinine Concen U Sodium Concentration Ur Urea Nitrogen Conc Urea Nitrogen Clear Assessment: Severe abdominal pain ?? etiology-SBO v ischemia v infectious?? Discussed surgery at length yesterday with patient and her including the risks and alternatives and the very high risk she represents for complications and possible . Laparoscopy and probable laparotomy was recommended but after discussion she did not want to proceed with surgery and she is being treated with IVF, IV and and an NGT and receiving analgesia. Her WBC is decreasing and she has no fever but her renal function is markedly worsening in the last 24 hours. Plan: Conitinue non-operative management per the patient's wishes IV abx, IVF and analgesia. I think she needs more IV fluid to treat hypovolemia- discussed with hospitalist. Prognosis remains poor
--- NOTE | 2018-09-06 15:28 | PN ---
Subjective Date of Service: 09/06/18 Interval History: Ms. London is not feeling well today. She continues to have significant abd pain which is constant, though she is unable to further describe the pain. Denies CP, SOB, nausea. No neurological deficits. She is concerned about her prognosis, but is not sure if she wants to be a DNR. She wants to speak with her about this. Nursing called this morning d/t concern for low urine output overnight despite IVF. Family History: Unchanged from Admission Social History: Unchanged from Admission Past Medical History: Unchanged from Admission Objective Active Medications: Acetaminophen (Tylenol Supp*) 650 mg AK Q6H PRN FEVER/PAIN Dextrose (D50w Syringe 50 Ml*) 12.5 gm IV PUSH .FOR FS < 60 - SS PRN FS < 60 Heparin Sodium (Porcine) (Heparin Vial(*)) 5,000 units SUBCUT Q8HR [facility] Sodium Chloride (Ns 0.9% 1000 Ml) 1,000 mls @ 150 mls/hr IV PER RATE [facility] Piperacillin Sod/Tazobactam (Sod 3.375 gm/ Sodium Chloride) 100 mls @ 25 mls/ hr IVPB Q12HR [facility] Insulin Glargine (Lantus(*)) 25 units SUBCUT 0900,2100 [facility] Insulin Human Lispro (Humalog*) 0 units SUBCUT Q6HR [facility]; Protocol Metoprolol Tartrate (Lopressor Iv*) 10 mg IV Q6H [facility] Mometasone Furoate/Formoterol Fumar (Dulera 200/5 Mdi*) 2 puff INH BID [facility] Morphine Sulfate (Morphine Inj ((Syringe))*) 2 mg IV Q4H PRN PAIN - MILD Ondansetron HCl (Zofran Inj*) 4 mg IV Q6H PRN NAUSEA Pantoprazole Sodium (Protonix Iv*) 40 mg IV Q24H [facility] Tiotropium Bessie (Spiriva Cap.Inh*) 1 cap INH DAILY [facility] Vital Signs - 8 hr 09/06/18 09/06/18 09/06/18 07:39 07:54 08:54 Temperature Pulse Rate 103 Respiratory 18 18 18 Rate Blood Pressure 130/70 (mmHg) O2 Sat by Pulse 96 Oximetry 09/06/18 09/06/18 09/06/18 09:00 10:13 11:05 Temperature 98.2 F Pulse Rate 86 Respiratory 18 18 18 Rate Blood Pressure 125/54 (mmHg) O2 Sat by Pulse 95 Oximetry Oxygen Devices in Use Now: Nasal Cannula - 2L Appearance: Middle-aged female laying in bed in obvious discomfort, but NAD Eyes: No Scleral Icterus Ears/Nose/Mouth/Throat: Mucous Membranes Moist Neck: NL Appearance and Movements; NL JVP, Trachea Midline Respiratory: Symmetrical Chest Expansion and Respiratory Effort, Clear to Auscultation Cardiovascular: NL Sounds; No Murmurs; No JVD, RRR Abdominal: - - Minimal to absent BS; Profoundly tender throughout Extremities: No Edema Neurological: Alert and Oriented x 3 Lines/Tubes/Other Access: Clean, Dry and Intact Peripheral IV Result Diagrams: 09/07/18 07:03 09/07/18 07:22 Assess/Plan/Problems-Billing Assessment: Ms. London is a 68 yo F with PMH of dCHF, DM2, afib, HARVEY, HTN, HLD, CKD stage 3 , chronic hypoxic respiratory failure on 3-5L NC at baseline; who presented to the ED with c/o abd pain and nausea and was found to have an SBO. - Patient Problems (1) Small bowel obstruction Code(s): K56.609 - UNSP INTESTNL OBST, UNSP TO PARTIAL VERSUS COMPLETE OBST Comment: - Differentials include infection vs ischemia - NG tube in place - Appreciate Surgery consult; plan initially was for surgery, though she is a very poor surgical candidate d/t her PMH and she was agreeable to holding off at this point - Surgery is following closely as surgical intervention may ultimately be necessary (2) [id number] kidney injury Code(s): N17.9 - ACUTE KIDNEY FAILURE, UNSPECIFIED; N18.9 - CHRONIC KIDNEY DISEASE, UNSPECIFIED Comment: - Baseline CKD stage 3, creatinine increased from baseline and significantly worse today - Secondary to hypovolemia - Bolus 1L and continue NS at 150mL/hr - Recheck BMP at 1500 and will continue to bolus if necessary (3) Sepsis Comment: - Met criteria on admission with fever, tachycardia, tachypnea, lactic acidosis ; peritonitis is likely sourse - Received fluid bolus - Caution with IVF d/t history of CHF - Continue Zosyn (4) Diastolic congestive heart failure Code(s): I50.30 - UNSPECIFIED DIASTOLIC (CONGESTIVE) HEART FAILURE Comment: - Not in exacerbation - Echo shows EF 55-60% - Hold furosemide d/t hypovolemia - Continue metoprolol (5) Chronic respiratory failure with hypoxia Comment: - No acute changes - Continue oxygen to maintain sats >92% (6) Atrial fibrillation Code(s): I48.91 - UNSPECIFIED ATRIAL FIBRILLATION Comment: - Rate controlled, paced - Placed on heparin drip on admission as she typically takes warfarin, though this was stopped per Surgery's recommendation as she may need to go to the OR urgently - She is at very high risk of thrombus d/t medical comorbidities - Continue metoprolol IV while NPO; will add diltiazem IV if rate becomes tachycardic (7) Hypertension Code(s): I10 - ESSENTIAL (PRIMARY) HYPERTENSION Comment: - Normotensive, SBP 110-130s - Continue metoprolol (8) Type 2 diabetes mellitus Comment: - Recent A1c in July was 7.1% - Continue Lantus, Lispro SS (9) HARVEY (obstructive sleep apnea) Code(s): G47.33 - OBSTRUCTIVE SLEEP APNEA (ADULT) (PEDIATRIC) Comment: - CPAP (10) Hyperlipidemia Code(s): E78.5 - HYPERLIPIDEMIA, UNSPECIFIED Comment: - Hold statin while NPO (11) DVT prophylaxis Comment: - Heparin SQ (12) Full code status Code(s): Z78.9 - OTHER SPECIFIED HEALTH STATUS Comment: Status and Disposition: Inpatient. Anticipate d/c home when medically stable, though prognosis is guarded. Attending: Angella Killian
[2018-09-06 16:31] LABS: BUN/Creatinine Ratio 14.4 (8-20); Calcium 7.2 mg/dL (8.6-10.3); EGFR African American 10.3 (>60); EGFR Non-African American 8.5 (>60)
[2018-09-06] MEDS ORDERED: NS 0.9% 1000 ML** 2,000 ML IV ONE (17:53)
[2018-09-06] MEDS: D5NS 0.9% 1000 ML BAG* 1,000 ML IV SCH (18:14)
[2018-09-06] MEDS: Pantoprazole IV* 40 MG IV SCH (21:21)
[2018-09-06] MEDS: ZOSYN 3.375 GM Q12H per EXTENDED INFUSION IVPB SCH ×2 (22:24)
[2018-09-06] MEDS: Heparin VIAL(*) 5000 UNITS/ML VIAL (FIVE THOUSAND) SUBCUT SCH (22:28)
[2018-09-06 23:39] LABS: BUN/Creatinine Ratio 14.2 (8-20); Calcium 6.9 mg/dL (8.6-10.3); EGFR Non-African American 8.3 (>60); Potassium 3.9 mmol/L (3.5-5.0)
[2018-09-07] MEDS: Metoprolol Tartrate IV* 1 MG/ML 5 ML VIAL IV SCH ×4 (00:09→19:12)
[2018-09-07] MEDS: Insulin LISPRO* 1 UNITS UNIT SUBCUT SCH ×4 (00:12→18:41)
[2018-09-07] MEDS: Mometasone/Formoter 200/5 MDI INH SCH ×3 (00:15→20:40)
[2018-09-07] MEDS: Ondansetron INJ* 2 MG/ML VIAL IV PRN (00:53)
[2018-09-07] MEDS: D5NS 0.9% 1000 ML BAG* 1,000 ML IV SCH ×2 (03:02→12:20)
[2018-09-07] MEDS: Morphine INJ* 2 MG/ML 1 ML SYRINGE (TWO MG - NEW SYRINGE VERSION) IV PRN ×2 (06:41→13:49)
[2018-09-07] MEDS: Heparin VIAL(*) 5000 UNITS/ML VIAL (FIVE THOUSAND) SUBCUT SCH ×3 (06:46→20:59)
[2018-09-07 07:16] LABS: ABS Basophils 0 10^3/ul (0-0.2); ABS Eosinophils 0 10^3/ul (0-0.6); ABS Lymphocytes 0.4 10^3/ul (1.0-4.8); ABS Monocytes 1.3 10^3/ul (0-0.8); ABS Neutrophils 14.1 10^3/ul (1.5-7.7); ABS Nucleated RBC 0 10^3/ul; Eosinophil % 0.1 %; Hematocrit 33 % (33-41); Hemoglobin 10.8 g/dL (12.0-16.0); Lymphocyte % 2.8 %; Mean Corpuscular HGB Conc 32 g/dL (31-36); Mean Corpuscular Hemoglobin 27 pg (27-31); Mean Corpuscular Volume 84 fL (80-97); Mean Platelet Volume 8.8 fL (7.4-10.4); Nucleated Red Blood Cells % 0.2; Platelet Count 258 10^3/uL (150-450); Red Blood Count 3.97 10^6 /uL (3.70-4.87); Red Cell Distribution Width 18 % (10.5-15); White Blood Count 15.8 10^3/uL (3.5-10.8)
[2018-09-07 07:32] LABS: Potassium 3.9 mmol/L (3.5-5.0)
[2018-09-07 07:37] LABS: BUN/Creatinine Ratio 13.3 (8-20); EGFR African American 9.6 (>60); EGFR Non-African American 7.9 (>60)
[2018-09-07] MEDS: ZOSYN 3.375 GM Q12H per EXTENDED INFUSION IVPB SCH ×4 (08:30→21:00)
[2018-09-07] MEDS: NS 0.9% 1000 ML** 3,000 ML IV SCH ×3 (08:30→15:18)
[2018-09-07] MEDS: Tiotropium CAP.INH* CAP.INH/18 MCG (USE ORDER SET !) INH SCH (08:31)
[2018-09-07] MEDS: Insulin GLARGINE(*) 1 UNITS UNIT SUBCUT SCH ×2 (08:31→20:58)
[2018-09-07 08:51] LABS: BUN Serum 72 mg/dL (6-24)
[2018-09-07 08:56] LABS: Ur Urea Nitrogen Concentration 408 mg/dL; Urea Nitrogen Clearance 2 mL/min (59-99)
--- NOTE | 2018-09-07 09:12 | PN ---
Subjective Date of Service: 09/07/18 Interval History: Ms. London is not feeling any better this morning. Her abd pain remains the same. She is very thirsty and frustrated that she is not able to drink anything. She is still not sure about her code status and asked me to call her . understands that her prognosis is guarded at this point and is open to making her a DNR if that is her wish. He will be in later today so that we can all have a conversation together. No concerns or complaints from nursing. Family History: Unchanged from Admission Social History: Unchanged from Admission Past Medical History: Unchanged from Admission Objective Active Medications: Acetaminophen (Tylenol Supp*) 650 mg NE Q6H PRN FEVER/PAIN Dextrose (D50w Syringe 50 Ml*) 12.5 gm IV PUSH .FOR FS < 60 - SS PRN FS < 60 Heparin Sodium (Porcine) (Heparin Vial(*)) 5,000 units SUBCUT Q8HR [facility] Piperacillin Sod/Tazobactam (Sod 3.375 gm/ Sodium Chloride) 100 mls @ 25 mls/ hr IVPB Q12HR [facility] Dextrose/Sodium Chloride (D5ns 0.9% 1000 Ml Bag*) 1,000 mls @ 125 mls/hr IV PER RATE [facility] Sodium Chloride (Ns 0.9% 1000 Ml) 3,000 mls @ 1,000 mls/hr IV .PER RATE [facility] Insulin Glargine (Lantus(*)) 20 units SUBCUT 0900,2100 [facility] Insulin Human Lispro (Humalog*) 0 units SUBCUT Q6HR [facility]; Protocol Metoprolol Tartrate (Lopressor Iv*) 10 mg IV Q6H [facility] Mometasone Furoate/Formoterol Fumar (Dulera 200/5 Mdi*) 2 puff INH BID [facility] Morphine Sulfate (Morphine Inj ((Syringe))*) 2 mg IV Q4H PRN PAIN - MILD Ondansetron HCl (Zofran Inj*) 4 mg IV Q6H PRN NAUSEA Pantoprazole Sodium (Protonix Iv*) 40 mg IV Q24H [facility] Tiotropium [place] (Spiriva Cap.Inh*) 1 cap INH DAILY [facility] Vital Signs - 8 hr 09/07/18 09/07/18 09/07/18 03:56 06:41 07:45 Temperature 99.0 F Pulse Rate 91 89 Respiratory 24 16 18 Rate Blood Pressure 136/62 107/40 (mmHg) O2 Sat by Pulse 97 97 Oximetry Oxygen Devices in Use Now: Nasal Cannula - 2L Appearance: Middle-aged female laying in bed in obvious discomfort, but NAD Eyes: No Scleral Icterus Ears/Nose/Mouth/Throat: Mucous Membranes Moist Neck: NL Appearance and Movements; NL JVP, Trachea Midline Respiratory: Symmetrical Chest Expansion and Respiratory Effort, Clear to Auscultation Cardiovascular: NL Sounds; No Murmurs; No JVD, RRR Abdominal: - - Large, round, distended, firm, tender to light palpation throughout Extremities: No Edema Neurological: Alert and Oriented x 3 Lines/Tubes/Other Access: Clean, Dry and Intact Peripheral IV Nutrition: Taking PO's Result Diagrams: 09/08/18 05:53 09/08/18 05:53 Assess/Plan/Problems-Billing Assessment: Ms. London is a 68 yo F with PMH of dCHF, DM2, afib, HARVEY, HTN, HLD, CKD stage 3 , chronic hypoxic respiratory failure on 3-5L NC at baseline; who presented to the ED with c/o abd pain and nausea and was found to have an SBO. - Patient Problems (1) Small bowel obstruction Code(s): K56.609 - UNSP INTESTNL OBST, UNSP TO PARTIAL VERSUS COMPLETE OBST Comment: - Differentials include infection vs ischemia - NG tube in place - Appreciate Surgery consult; she is a very poor surgical candidate d/t her PMH and she is declining any invasive measures at this time - Surgery is following closely as surgical intervention may ultimately be necessary (2) [id number] kidney injury Code(s): N17.9 - ACUTE KIDNEY FAILURE, UNSPECIFIED; N18.9 - CHRONIC KIDNEY DISEASE, UNSPECIFIED Comment: - Baseline CKD stage 3, creatinine increased from baseline and not improving - FENa 0.6% indicating pre-renal source, secondary to hypovolemia - Bolus another 3L and continue NS at 150mL/hr (3) Sepsis Comment: - Met criteria on admission with fever, tachycardia, tachypnea, lactic acidosis ; peritonitis is likely sourse - Received fluid bolus - Caution with IVF d/t history of CHF - Continue Zosyn (4) Diastolic congestive heart failure Code(s): I50.30 - UNSPECIFIED DIASTOLIC (CONGESTIVE) HEART FAILURE Comment: - Not in exacerbation - Echo shows EF 55-60% - Hold furosemide d/t hypovolemia - Continue metoprolol (5) Chronic respiratory failure with hypoxia Comment: - No acute changes - Continue oxygen to maintain sats >92% (6) Atrial fibrillation Code(s): I48.91 - UNSPECIFIED ATRIAL FIBRILLATION Comment: - Rate controlled, paced - Placed on heparin drip on admission as she typically takes warfarin, though this was stopped per Surgery's recommendation as she may ultimately need to go to the OR - She is at very high risk of thrombus d/t medical comorbidities - Continue metoprolol IV while NPO; will add diltiazem IV if rate becomes tachycardic (7) Hypertension Code(s): I10 - ESSENTIAL (PRIMARY) HYPERTENSION Comment: - Normotensive, SBP 110-130s - Continue metoprolol (8) Type 2 diabetes mellitus Comment: - Recent A1c in July was 7.1% - Continue Lantus, Lispro SS (9) HARVEY (obstructive sleep apnea) Code(s): G47.33 - OBSTRUCTIVE SLEEP APNEA (ADULT) (PEDIATRIC) Comment: - CPAP (10) Hyperlipidemia Code(s): E78.5 - HYPERLIPIDEMIA, UNSPECIFIED Comment: - Hold statin while NPO (11) DVT prophylaxis Comment: - Heparin SQ (12) Full code status Code(s): Z78.9 - OTHER SPECIFIED HEALTH STATUS Comment: Status and Disposition: Inpatient. Anticipate d/c home when medically stable, though prognosis is guarded. Attending: Angella Killian
[2018-09-07 16:06] LABS: Urine Appearance Cloudy; Urine Bacteria 1+ (Absent); Urine Bilirubin Negative (Negative); Urine Blood 2+ (Negative); Urine Color Amber; Urine Glucose Negative (Negative); Urine Ketones Negative (Negative); Urine Nitrite Negative (Negative); Urine Protein 2+(100 mg/dL) (Negative); Urine Red Blood Cell 3+(>10/hpf) (Absent); Urine Specific Gravity 1.014 (1.010-1.030); Urine Squamous Epithelial Cell Present (Absent); Urine Urobilinogen Negative (Negative); Urine White Blood Cell 2+(11-20/hpf) (Absent)
[2018-09-07 16:49] LABS: Magnesium 2.2 mg/dL (1.9-2.7); Phosphorus 5.5 mg/dL (2.5-5.0)
[2018-09-07] MEDS: Pantoprazole IV* 40 MG IV SCH (19:12)
[2018-09-07] MEDS: NS 0.9% 1000 ML** 2,000 ML IV ONE ×2 (19:12→20:24)
--- NOTE | 2018-09-07 21:20 | CONSULT ---
Palliative / Hospice Consult Ordering Provider: Gertrude Chang - Subjective Code Status: Full Code Advance Directives Location: No Advance Directives - History or Present Illness History or Present Illness: 68 yo female with COPD and CKD stage3 presents to ER with abdominal pain, N/V, diarrhea and weakness for last few days. PMH significant for COPD on 5 liters home O2, DM type 2, sleep apnea, anemia, afib s/p pacer, HTN, recently diagnosed psoriatic arthritis and hyperlipidemia. She is an ex smoker/rare etoh/ no drug use and retired from [employer]. CT abd showed small bowel obstruction. Pt was admitted for abdominal pain. Surgery was presented as an option but pt declined worried about the risks of the procedure and her ability to recover from the procedure. Pt currently is very uncomfortable but feels some of the distention has lessened. All history is from the pt and medical chart. Significant labs BUN/Cr 72/5.4 egfr 7.9, alb 2.3, tprot 5.8. ECHO EF50-55 %. Lab Values: Abnormal Lab Results 09/06/18 09/06/18 09/07/18 23:12 23:59 06:34 WBC RBC Hgb Hct MCV MCH MCHC RDW Plt Count MPV Neut % (Auto) Lymph % (Auto) Harnett % (Auto) Eos % (Auto) Baso % (Auto) Absolute Neuts (auto) Absolute Lymphs (auto) Absolute Monos (auto) Absolute Eos (auto) Absolute Basos (auto) Absolute Nucleated RBC Nucleated RBC % Sodium 134 L Potassium 3.9 Chloride 103 Carbon Dioxide 17 L Anion Gap 14 H BUN 74 H Creatinine 5.21 H Est GFR ( Amer) 10.0 Est GFR (Non-Af Amer) 8.3 BUN/Creatinine Ratio 14.2 Glucose 112 H POC Glucose (mg/dL) 131 H 120 H Lactic Acid Calcium 6.9 L Phosphorus Magnesium Urine Color Urine Appearance Urine pH Ur Specific Parker Urine Protein Urine Ketones Urine Blood Urine Nitrate Urine Bilirubin Urine Urobilinogen Ur Leukocyte Esterase Urine WBC (Auto) Urine RBC (Auto) Ur Squamous Epith Cells Amorphous Crystals Urine Bacteria Urine Collection Time Urine Total Volume Ur Urea Nitrogen Conc Urea Nitrogen Clear Urine Glucose 09/07/18 09/07/18 09/07/18 07:03 07:03 07:03 WBC 15.8 H RBC 3.97 Hgb 10.8 L Hct 33 MCV 84 MCH 27 MCHC 32 RDW 18 H Plt Count 258 MPV 8.8 Neut % (Auto) 89.0 Lymph % (Auto) 2.8 Harnett % (Auto) 8.0 Eos % (Auto) 0.1 Baso % (Auto) 0.1 Absolute Neuts (auto) 14.1 H Absolute Lymphs (auto) 0.4 L Absolute Monos (auto) 1.3 H Absolute Eos (auto) 0 Absolute Basos (auto) 0 Absolute Nucleated RBC 0 Nucleated RBC % 0.2 Sodium 135 Potassium 3.9 Chloride 103 Carbon Dioxide 20 L Anion Gap 12 H BUN 72 H Creatinine 5.40 H Est GFR ( Amer) 9.6 Est GFR (Non-Af Amer) 7.9 BUN/Creatinine Ratio 13.3 Glucose 120 H POC Glucose (mg/dL) Lactic Acid 1.0 Calcium 7.0 L Phosphorus 5.5 H Magnesium 2.2 Urine Color Urine Appearance Urine pH Ur Specific Parker Urine Protein Urine Ketones Urine Blood Urine Nitrate Urine Bilirubin Urine Urobilinogen Ur Leukocyte Esterase Urine WBC (Auto) Urine RBC (Auto) Ur Squamous Epith Cells Amorphous Crystals Urine Bacteria Urine Collection Time Urine Total Volume Ur Urea Nitrogen Conc Urea Nitrogen Clear Urine Glucose 09/07/18 09/07/18 09/07/18 07:22 12:10 15:20 WBC RBC Hgb Hct MCV MCH MCHC RDW Plt Count MPV Neut % (Auto) Lymph % (Auto) Harnett % (Auto) Eos % (Auto) Baso % (Auto) Absolute Neuts (auto) Absolute Lymphs (auto) Absolute Monos (auto) Absolute Eos (auto) Absolute Basos (auto) Absolute Nucleated RBC Nucleated RBC % Sodium Potassium Chloride Carbon Dioxide Anion Gap BUN 72 H Creatinine Est GFR ( Amer) Est GFR (Non-Af Amer) BUN/Creatinine Ratio Glucose POC Glucose (mg/dL) 133 H Lactic Acid Calcium Phosphorus Magnesium Urine Color [place] Urine Appearance Cloudy Urine pH 5.0 Ur Specific Parker 1.014 Urine Protein 2+(100 mg/dl) A Urine Ketones Negative Urine Blood 2+ A Urine Nitrate Negative Urine Bilirubin Negative Urine Urobilinogen Negative Ur Leukocyte Esterase Negative Urine WBC (Auto) 2+(11-20/hpf) A Urine RBC (Auto) 3+(>10/hpf) A Ur Squamous Epith Cells Present A Amorphous Crystals Present A Urine Bacteria 1+ A Urine Collection Time 24 Urine Total Volume 550 Ur Urea Nitrogen Conc 408 Urea Nitrogen Clear 2 L Urine Glucose Negative 09/07/18 17:51 WBC RBC Hgb Hct MCV MCH MCHC RDW Plt Count MPV Neut % (Auto) Lymph % (Auto) Harnett % (Auto) Eos % (Auto) Baso % (Auto) Absolute Neuts (auto) Absolute Lymphs (auto) Absolute Monos (auto) Absolute Eos (auto) Absolute Basos (auto) Absolute Nucleated RBC Nucleated RBC % Sodium Potassium Chloride Carbon Dioxide Anion Gap BUN Creatinine Est GFR ( Amer) Est GFR (Non-Af Amer) BUN/Creatinine Ratio Glucose POC Glucose (mg/dL) 93 Lactic Acid Calcium Phosphorus Magnesium Urine Color Urine Appearance Urine pH Ur Specific Parker Urine Protein Urine Ketones Urine Blood Urine Nitrate Urine Bilirubin Urine Urobilinogen Ur Leukocyte Esterase Urine WBC (Auto) Urine RBC (Auto) Ur Squamous Epith Cells Amorphous Crystals Urine Bacteria Urine Collection Time Urine Total Volume Ur Urea Nitrogen Conc Urea Nitrogen Clear Urine Glucose Laboratory Last Values WBC 15.8 10^3/uL (3.5-10.8) H 09/07/18 07:03 RBC 3.97 10^6 /uL (3.70-4.87) 09/07/18 07:03 Hgb 10.8 g/dL (12.0-16.0) L 09/07/18 07:03 Hct 33 % (33-41) 09/07/18 07:03 MCV 84 fL (80-97) 09/07/18 07:03 MCH 27 pg (27-31) 09/07/18 07:03 MCHC 32 g/dL (31-36) 09/07/18 07:03 RDW 18 % (10.5-15) H 09/07/18 07:03 Plt Count 258 10^3/uL (150-450) 09/07/18 07:03 MPV 8.8 fL (7.4-10.4) 09/07/18 07:03 Neut % (Auto) 89.0 % 09/07/18 07:03 Lymph % (Auto) 2.8 % 09/07/18 07:03 Harnett % (Auto) 8.0 % 09/07/18 07:03 Eos % (Auto) 0.1 % 09/07/18 07:03 Baso % (Auto) 0.1 % 09/07/18 07:03 Absolute Neuts (auto) 14.1 10^3/ul (1.5-7.7) H 09/07/18 07:03 Absolute Lymphs (auto) 0.4 10^3/ul (1.0-4.8) L 09/07/18 07:03 Absolute Monos (auto) 1.3 10^3/ul (0-0.8) H 09/07/18 07:03 Absolute Eos (auto) 0 10^3/ul (0-0.6) 09/07/18 07:03 Absolute Basos (auto) 0 10^3/ul (0-0.2) 09/07/18 07:03 Absolute Nucleated RBC 0 10^3/ul 09/07/18 07:03 Nucleated RBC % 0.2 09/07/18 07:03 INR (Anticoag Therapy) 3.39 (0.77-1.02) H 09/06/18 07:44 APTT 80.5 seconds (26.0-36.3) H 09/05/18 09:26 Sodium 135 mmol/L (135-145) 09/07/18 07:03 Potassium 3.9 mmol/L (3.5-5.0) 09/07/18 07:03 Chloride 103 mmol/L (101-111) 09/07/18 07:03 Carbon Dioxide 20 mmol/L (22-32) L 09/07/18 07:03 Anion Gap 12 mmol/L (2-11) H 09/07/18 07:03 BUN 72 mg/dL (6-24) H 09/07/18 07:22 Creatinine 5.40 mg/dL (0.51-0.95) H 09/07/18 07:03 Est GFR ( Amer) 9.6 (>60) 09/07/18 07:03 Est GFR (Non-Af Amer) 7.9 (>60) 09/07/18 07:03 BUN/Creatinine Ratio 13.3 (8-20) 09/07/18 07:03 Glucose 120 mg/dL (70-100) H 09/07/18 07:03 POC Glucose (mg/dL) 93 mg/dL (70-100) 09/07/18 17:51 Lactic Acid 1.0 mmol/L (0.5-2.0) 09/07/18 07:03 Calcium 7.0 mg/dL (8.6-10.3) L 09/07/18 07:03 Phosphorus 5.5 mg/dL (2.5-5.0) H 09/07/18 07:03 Magnesium 2.2 mg/dL (1.9-2.7) 09/07/18 07:03 Total Bilirubin 1.80 mg/dL (0.2-1.0) H 09/06/18 07:44 AST 93 U/L (13-39) H 09/06/18 07:44 ALT 46 U/L (7-52) 09/06/18 07:44 Alkaline Phosphatase 95 U/L (34-104) 09/06/18 07:44 C-Reactive Protein 273.55 mg/L (<8.01) H 09/04/18 13:01 B-Natriuretic Peptide 371 pg/mL (<=100) H 09/04/18 13:01 Total Protein 5.8 g/dL (6.4-8.9) L 09/06/18 07:44 Albumin 2.3 g/dL (3.2-5.2) L 09/06/18 07:44 Globulin 3.5 g/dL (2-4) 09/06/18 07:44 Albumin/Globulin Ratio 0.7 (1-3) L 09/06/18 07:44 Lipase < 10 U/L (11.0-82.0) L 09/04/18 13:01 Urine Color Soledad 09/07/18 15:20 Urine Appearance Cloudy 09/07/18 15:20 Urine pH 5.0 (5-9) 09/07/18 15:20 Ur Specific Parker 1.014 (1.010-1.030) 09/07/18 15:20 Urine Protein 2+(100 mg/dl) (Negative) A 09/07/18 15:20 Urine Ketones Negative (Negative) 09/07/18 15:20 Urine Blood 2+ (Negative) A 09/07/18 15:20 Urine Nitrate Negative (Negative) 09/07/18 15:20 Urine Bilirubin Negative (Negative) 09/07/18 15:20 Urine Urobilinogen Negative (Negative) 09/07/18 15:20 Ur Leukocyte Esterase Negative (Negative) 09/07/18 15:20 Urine WBC (Auto) 2+(11-20/hpf) (Absent) A 09/07/18 15:20 Urine RBC (Auto) 3+(>10/hpf) (Absent) A 09/07/18 15:20 Ur Squamous Epith Cells Present (Absent) A 09/07/18 15:20 Amorphous Crystals Present (Absent) A 09/07/18 15:20 Urine Bacteria 1+ (Absent) A 09/07/18 15:20 Urine Collection Time 24 hr 09/07/18 07:22 Urine Total Volume 550 mL 09/07/18 07:22 Ur Creatinine Concen 111.23 mg/dL 09/06/18 04:00 U Sodium Concentration < 18 mmol/L 09/06/18 04:00 Ur Urea Nitrogen Conc 408 mg/dL 09/07/18 07:22 Urea Nitrogen Clear 2 mL/min (59-99) L 09/07/18 07:22 Urine Glucose Negative (Negative) 09/07/18 15:20 Influenza A (Rapid) Negative (Negative) 09/04/18 17:59 Influenza B (Rapid) Negative (Negative) 09/04/18 17:59 - Objective Active Medications: Acetaminophen (Tylenol Supp*) [address] Q6H PRN PRN Reason: FEVER/PAIN Dextrose (D50w Syringe 50 Ml*) 12.5 gm IV PUSH .FOR FS < 60 - SS PRN PRN Reason: FS < 60 Heparin Sodium (Porcine) (Heparin Vial(*)) 5,000 units SUBCUT Q8HR [facility] Last Admin: 09/07/18 20:59 Dose: 5,000 units Piperacillin Sod/Tazobactam (Sod 3.375 gm/ Sodium Chloride) 100 mls @ 25 mls/ hr IVPB Q12HR [facility] Last Admin: 09/07/18 21:00 Dose: 25 mls/hr Dextrose/Sodium Chloride (D5ns 0.9% 1000 Ml Bag*) 1,000 mls @ 125 mls/hr IV PER RATE [facility] Last Admin: 09/07/18 12:20 Dose: 125 mls/hr Insulin Glargine (Lantus(*)) 20 units SUBCUT 0900,2100 [facility] Last Admin: 09/07/18 20:58 Dose: 20 units Insulin Human Lispro (Humalog*) 0 units SUBCUT Q6HR [facility]; Protocol Last Admin: 09/07/18 18:41 Dose: Not Given Metoprolol Tartrate (Lopressor Iv*) 10 mg IV Q6H [facility] Last Admin: 09/07/18 19:12 Dose: 10 mg Mometasone Furoate/Formoterol Fumar (Dulera 200/5 Mdi*) 2 puff INH BID [facility] Last Admin: 09/07/18 20:40 Dose: 2 puff Morphine Sulfate (Morphine Inj ((Syringe))*) 2 mg IV Q4H PRN PRN Reason: PAIN - MILD Last Admin: 09/07/18 13:49 Dose: 2 mg Ondansetron HCl (Zofran Inj*) 4 mg IV Q6H PRN PRN Reason: NAUSEA Last Admin: 09/07/18 00:53 Dose: 4 mg Pantoprazole Sodium (Protonix Iv*) 40 mg IV Q24H [facility] Last Admin: 09/07/18 19:12 Dose: 40 mg Pharmacy Consult (Zosyn Per Pharmacy*) 1 note FOLLOW UP . PRN PRN Reason: PER PROTOCOL Tiotropium [place] (Spiriva Cap.Inh*) 1 cap INH DAILY [facility] Last Admin: 09/07/18 08:31 Dose: 1 cap Vital Signs: Vital Signs: Temp Pulse Resp BP Pulse Ox 99.0 F 92 20 133/62 98 09/07/18 03:56 09/07/18 20:43 09/07/18 20:43 09/07/18 15:45 09/07/18 20:43 Patient Weight: Weight 151.545 kg Intake and Output: Intake & Output 09/05/18 09/06/18 09/07/18 09/08/18 06:59 06:59 06:59 06:59 Intake Total 110 3351 3658 5037 Output Total 0 1994 1625 50 Balance 110 1356 2033 4987 Weight 147.463 kg 150.366 kg 151.545 kg Intake: IV Fluids 110 2951 2917 4947 ABX - ZOSYN 55 211 D5W NS (0.9%) 990 NS 2740 2917 3957 mag 55 IVPB 221 90 ABX - ZOSYN 221 90 Oral 0 400 520 Output: NG Tube Drainage Amount 0 1800 1000 Urine 0 Francis 195 625 50 Other: Estimated Void Small Small # Bowel Movements 0 0 ADLs: Meal Record Start: 09/04/18 18: 49 Freq: Status: Active Protocol: Created 09/04/18 18:49 System (Rec: 09/04/18 18:49 System [id number]) Document 09/05/18 08:08 [id number] (Rec: 09/05/18 08:08 [id number] SSU-C04) Document 09/05/18 13:06 [id number] (Rec: 09/05/18 13:06 [id number] SSU-C04) Intake and Output Start: 09/04/18 12: 30 Freq: Status: Active Protocol: Created 09/04/18 12:30 System (Rec: 09/04/18 12:30 System [id number]) Intake and Output Start: 09/04/18 18: 49 Freq: DAILY@0600,1400,2200 Status: Active Protocol: Created 09/04/18 18:49 System (Rec: 09/04/18 18:49 System [id number]) Document 09/04/18 22:35 [id number] (Rec: 09/04/18 22:35 [id number] SSU-M17) Document 09/05/18 06:04 [id number] (Rec: 09/05/18 06:06 [id number] SSU-C05) Document 09/05/18 07:52 [id number] (Rec: 09/05/18 07:52 [id number] SSU-C08) Document 09/05/18 14:41 [id number] (Rec: 09/05/18 14:43 [id number] SSU-C04) Document 09/05/18 22:15 [id number] (Rec: 09/05/18 22:15 [id number] [facility]-M17) Document 09/06/18 02:41 [id number] (Rec: 09/06/18 02:41 [id number] SSU-C05) Document 09/06/18 04:10 [id number] (Rec: 09/06/18 04:11 [id number] S[facility]-M13) Document 09/06/18 06:06 [id number] (Rec: 09/06/18 06:06 [id number] S[facility]-M18) Document 09/06/18 14:00 [id number] (Rec: 09/06/18 15:52 [id number] U-M15) Document 09/06/18 15:53 [id number] (Rec: 09/06/18 15:54 [id number] U-C11) Document 09/06/18 22:39 [id number] (Rec: 09/06/18 22:41 [id number] [facility]-M17) Document 09/07/18 06:15 [id number] (Rec: 09/07/18 06:17 [id number] [facility]-L02) Document 09/07/18 07:35 [id number] (Rec: 09/07/18 07:35 [id number] U-C19) Eyes: No Scleral Icterus Ears/Nose/Mouth/Throat: Mucous Membranes Moist Neck: NL Appearance and Movements; NL JVP, Trachea Midline Cardiovascular: NL Sounds; No Murmurs; No JVD, RRR Abdominal: - - Large, round, distended, firm, tender to light palpation throughout Extremities: No Edema Neurological: Alert and Oriented x 3 - Assessment Assessment: 68 yo female with COPD and CKD presenting with abdominal pain secondary to presumed small bowel obstruction declining surgery. - Plan Consult Plan (MU): Palliative Plan: Long discussion with pt and about pt's medical conditions and prognosis. Pt spends most of her time in a recliner, walks with a walker. Describes herself as having a miserable existence but then says she wants to live. We talked about the MOLST form she wants CPR but doesn't want to be intubated. She enjoys going out with old coworkers. Currently her view of things is skewed because she is having pain. She has not been following with nephrology for her kidney disease. When asked about dialysis she didn't want hemodialysis and wasn't sure about peritoneal. She is seeing Dr. García for her COPD and Dr. Alfonso for her heart issues. She is afraid to during the surgery. inquired about going to [facility] which I said was their prerogative but it wouldn't change her risk factors for surgery. At this time she is not hospice eligible. She did note if she is going to she wants to be kept comfortable. KPS 60% PPS 50% - Time On Unit Date of Evaluation: 09/07/18 Hospice Consult Time in: 05:00 Hospice Consult Time Out: 06:30 Hospice Consult Time Total: 90 > 50% of Time Spend In Counseling or Coordinating Care: Yes
[2018-09-08] MEDS: Insulin LISPRO* 1 UNITS UNIT SUBCUT SCH ×4 (00:14→17:50)
[2018-09-08] MEDS: D5NS 0.9% 1000 ML BAG* 1,000 ML IV SCH ×2 (01:05→20:51)
[2018-09-08] MEDS: Metoprolol Tartrate IV* 1 MG/ML 5 ML VIAL IV SCH ×4 (01:06→17:38)
[2018-09-08] MEDS: Heparin VIAL(*) 5000 UNITS/ML VIAL (FIVE THOUSAND) SUBCUT SCH ×3 (06:06→20:52)
[2018-09-08 06:15] LABS: Hematocrit 31 % (33-41); Mean Corpuscular HGB Conc 32 g/dL (31-36); Mean Corpuscular Hemoglobin 27 pg (27-31); Mean Corpuscular Volume 84 fL (80-97); Mean Platelet Volume 8.7 fL (7.4-10.4); Platelet Count 241 10^3/uL (150-450); Red Blood Count 3.65 10^6 /uL (3.70-4.87); Red Cell Distribution Width 18 % (10.5-15); White Blood Count 20.2 10^3/uL (3.5-10.8)
[2018-09-08 06:36] LABS: ABS Basophils 0 10^3/ul (0-0.2); ABS Eosinophils 0.2 10^3/ul (0-0.6); ABS Lymphocytes 0.5 10^3/ul (1.0-4.8); ABS Monocytes 1.2 10^3/ul (0-0.8); ABS Neutrophils 18.2 10^3/ul (1.5-7.7); ABS Nucleated RBC 0 10^3/ul
[2018-09-08 06:38] LABS: Immature Granulocytes 14 % (0-9); Lymphocytes % 8 %; Monocytes % 2 %; Myelocytes % 1 % (0-1); Neutrophil % 76 %; Promyelocytes % 1 %
[2018-09-08 06:39] LABS: Polychromasia 1+
[2018-09-08 06:40] LABS: ABS Neutrophils 18.2 10^3/ul (1.5-7.7); Burr Cells 1+
[2018-09-08 06:42] LABS: BUN/Creatinine Ratio 12.8 (8-20); Calcium 6.9 mg/dL (8.6-10.3); EGFR African American 9.8 (>60); EGFR Non-African American 8.1 (>60); Potassium 3.6 mmol/L (3.5-5.0)
[2018-09-08] MEDS ORDERED: NS 0.9% 1000 ML** 3,000 ML IV ONE (07:05)
[2018-09-08] MEDS: Mometasone/Formoter 200/5 MDI INH SCH ×2 (08:33→19:12)
[2018-09-08] MEDS: Tiotropium CAP.INH* CAP.INH/18 MCG (USE ORDER SET !) INH SCH (08:33)
[2018-09-08] MEDS: ZOSYN 3.375 GM Q12H per EXTENDED INFUSION IVPB SCH ×4 (08:52→20:49)
[2018-09-08] MEDS: Insulin GLARGINE(*) 1 UNITS UNIT SUBCUT SCH ×2 (08:52→20:52)
--- NOTE | 2018-09-08 13:54 | PN ---
Subjective Date of Service: 09/08/18 Interval History: Ms. London is not feeling any better today. She is still having significant abd pain. She is not able to provide much subjective data as she just continuously asks for something to drink. She is not willing to discuss code status. She denies CP, SOB, nausea. I did stop in to see her yesterday afternoon. There were 2 friends at the bedside. At that point the patient became somewhat irate with me indicating that she may want surgery and wants her doctors to make the decision for her. When asked about this today, she told me that she never made any mention of wanting surgery. No complaints or concerns from nursing. Continues to have low urine output. Family History: Unchanged from Admission Social History: Unchanged from Admission Past Medical History: Unchanged from Admission Objective Active Medications: Acetaminophen (Tylenol Supp*) 650 mg RI Q6H PRN FEVER/PAIN Dextrose (D50w Syringe 50 Ml*) 12.5 gm IV PUSH .FOR FS < 60 - SS PRN FS < 60 Heparin Sodium (Porcine) (Heparin Vial(*)) 5,000 units SUBCUT Q8HR [facility] Heparin Sodium (Porcine) (Heparin Flush Picc/Ml/Cvc(*)) 1 - 3 ml FLUSH 0600, 1800 [facility]; Protocol Piperacillin Sod/Tazobactam (Sod 3.375 gm/ Sodium Chloride) 100 mls @ 25 mls/ hr IVPB Q12HR [facility] Dextrose/Sodium Chloride (D5ns 0.9% 1000 Ml Bag*) 1,000 mls @ 125 mls/hr IV PER RATE [facility] Insulin Glargine (Lantus(*)) 20 units SUBCUT 0900,2100 [facility] Insulin Human Lispro (Humalog*) 0 units SUBCUT Q6HR [facility]; Protocol Metoprolol Tartrate (Lopressor Iv*) 10 mg IV Q6H [facility] Mometasone Furoate/Formoterol Fumar (Dulera 200/5 Mdi*) 2 puff INH BID [facility] Morphine Sulfate (Morphine Inj ((Syringe))*) 2 mg IV Q4H PRN PAIN - MILD Ondansetron HCl (Zofran Inj*) 4 mg IV Q6H PRN NAUSEA Pantoprazole Sodium (Protonix Iv*) 40 mg IV Q24H [facility] Tiotropium [place] (Spiriva Cap.Inh*) 1 cap INH DAILY [facility] Vital Signs - 8 hr 09/08/18 09/08/18 09/08/18 07:40 08:00 08:34 Temperature 98.6 F Pulse Rate 97 101 Respiratory 20 20 17 Rate Blood Pressure 103/49 (mmHg) O2 Sat by Pulse 96 Oximetry 09/08/18 12:51 Temperature 98.6 F Pulse Rate 106 Respiratory 18 Rate Blood Pressure 136/54 (mmHg) O2 Sat by Pulse 95 Oximetry Oxygen Devices in Use Now: Nasal Cannula - 2L Appearance: Middle-aged female laying in bed in obvious discomfort, but NAD Eyes: No Scleral Icterus Ears/Nose/Mouth/Throat: Mucous Membranes Moist Neck: NL Appearance and Movements; NL JVP, Trachea Midline Respiratory: Symmetrical Chest Expansion and Respiratory Effort, Clear to Auscultation Cardiovascular: NL Sounds; No Murmurs; No JVD, RRR Abdominal: - - Large, distended and firm; Unable to auscultate any BS Neurological: Alert and Oriented x 3 Lines/Tubes/Other Access: Clean, Dry and Intact Peripheral IV Result Diagrams: 09/09/18 08:45 09/09/18 08:45 Assess/Plan/Problems-Billing Assessment: Ms. London is a 68 yo F with PMH of dCHF, DM2, afib, HARVEY, HTN, HLD, CKD stage 3 , chronic hypoxic respiratory failure on 3-5L NC at baseline; who presented to the ED with c/o abd pain and nausea and was found to have an SBO. - Patient Problems (1) Small bowel obstruction Code(s): K56.609 - UNSP INTESTNL OBST, UNSP TO PARTIAL VERSUS COMPLETE OBST Comment: - Differentials include infection vs ischemia - NG tube in place - Appreciate Surgery consult; she is a very poor surgical candidate and she is declining any surgery or invasive measures at this time - Surgery is following closely as surgical intervention may ultimately be necessary (2) [id number]-[id number] kidney injury Code(s): N17.9 - ACUTE KIDNEY FAILURE, UNSPECIFIED; N18.9 - CHRONIC KIDNEY DISEASE, UNSPECIFIED Comment: - Baseline CKD stage 3, creatinine increased from baseline and not improving with IVF - FENa 0.6% indicating pre-renal source, secondary to hypovolemia - Appreciate Nephrology consult - Bolus another 3L today (3) Sepsis Comment: - Met criteria on admission with fever, tachycardia, tachypnea, lactic acidosis ; peritonitis is likely sourse - Received fluid bolus - Caution with IVF d/t history of CHF - Continue Zosyn (4) Diastolic congestive heart failure Code(s): I50.30 - UNSPECIFIED DIASTOLIC (CONGESTIVE) HEART FAILURE Comment: - Not in exacerbation - Echo shows EF 55-60% - Hold furosemide d/t hypovolemia - Continue metoprolol (5) Chronic respiratory failure with hypoxia Comment: - No acute changes - Continue oxygen to maintain sats >92% (6) Atrial fibrillation Code(s): I48.91 - UNSPECIFIED ATRIAL FIBRILLATION Comment: - Rate controlled, paced - Placed on heparin drip on admission as she typically takes warfarin, though this was stopped per Surgery's recommendation as she may ultimately need to go to the OR - She is at very high risk of thrombus d/t medical comorbidities - Continue metoprolol IV while NPO; will add diltiazem IV if rate becomes tachycardic (7) Hypertension Code(s): I10 - ESSENTIAL (PRIMARY) HYPERTENSION Comment: - Normotensive, SBP 100-130s - Continue metoprolol (8) Type 2 diabetes mellitus Comment: - Recent A1c in July was 7.1% - Continue Lantus, Lispro SS (9) HARVEY (obstructive sleep apnea) Code(s): G47.33 - OBSTRUCTIVE SLEEP APNEA (ADULT) (PEDIATRIC) Comment: - CPAP (10) Hyperlipidemia Code(s): E78.5 - HYPERLIPIDEMIA, UNSPECIFIED Comment: - Hold statin while NPO (11) DVT prophylaxis Comment: - Heparin SQ (12) Full code status Code(s): Z78.9 - OTHER SPECIFIED HEALTH STATUS Comment: Status and Disposition: Inpatient. Anticipate d/c home when medically stable, though prognosis is guarded. Attending: Adrianne Gordon
[2018-09-08] MEDS: Morphine INJ* 2 MG/ML 1 ML SYRINGE (TWO MG - NEW SYRINGE VERSION) IV PRN (15:14)
[2018-09-08] MEDS: Pantoprazole IV* 40 MG IV SCH (17:48)
[2018-09-09] MEDS: Insulin LISPRO* 1 UNITS UNIT SUBCUT SCH (00:08)
[2018-09-09] MEDS: Morphine INJ* 2 MG/ML 1 ML SYRINGE (TWO MG - NEW SYRINGE VERSION) IV PRN ×5 (01:58→19:43)
[2018-09-09] MEDS: Metoprolol Tartrate IV* 1 MG/ML 5 ML VIAL IV SCH ×4 (01:59→16:57)
[2018-09-09] MEDS: D5NS 0.9% 1000 ML BAG* 1,000 ML IV SCH ×2 (05:30→18:24)
[2018-09-09] MEDS: Heparin VIAL(*) 5000 UNITS/ML VIAL (FIVE THOUSAND) SUBCUT SCH (07:26)
[2018-09-09 07:50] LABS: Hematocrit 31 % (33-41); Hemoglobin 10.1 g/dL (12.0-16.0); Mean Corpuscular HGB Conc 33 g/dL (31-36); Mean Corpuscular Hemoglobin 28 pg (27-31); Mean Corpuscular Volume 84 fL (80-97); Mean Platelet Volume 8.8 fL (7.4-10.4); Platelet Count 243 10^3/uL (150-450); Red Blood Count 3.69 10^6 /uL (3.70-4.87); Red Cell Distribution Width 18 % (10.5-15); White Blood Count 26.5 10^3/uL (3.5-10.8)
[2018-09-09 08:06] LABS: Albumin 1.9 g/dL (3.2-5.2); Albumin/Globulin Ratio 0.6 (1-3); BUN/Creatinine Ratio 12.5 (8-20); Calcium 7.2 mg/dL (8.6-10.3); EGFR African American 8.9 (>60); EGFR Non-African American 7.4 (>60); Globulin 3.1 g/dL (2-4); Potassium 3.7 mmol/L (3.5-5.0)
[2018-09-09] MEDS: Mometasone/Formoter 200/5 MDI INH SCH ×2 (08:08→20:15)
[2018-09-09] MEDS: Tiotropium CAP.INH* CAP.INH/18 MCG (USE ORDER SET !) INH SCH (08:08)
[2018-09-09 08:32] LABS: Neutrophil % 90 %
[2018-09-09 08:33] LABS: Lymphocytes % 1 %; Metamyelocytes % 2 % (0-2); Monocytes % 4 %; Myelocytes % 2 % (0-1)
[2018-09-09 08:34] LABS: ABS Neutrophils 25.1 10^3/ul (1.5-7.7); Immature Granulocytes 5 % (0-9)
[2018-09-09] MEDS: NS 0.9% 1000 ML** 1,000 ML IV SCH ×3 (08:36→12:25)
[2018-09-09] MEDS: ZOSYN 3.375 GM Q12H per EXTENDED INFUSION IVPB SCH ×4 (08:40→19:59)
[2018-09-09] MEDS ORDERED: Heparin VIAL(*) 5000 UNITS/ML VIAL (FIVE THOUSAND) IV SCH (09:00)
[2018-09-09 09:02] LABS: Hematocrit 31 % (33-41); Hemoglobin 10.1 g/dL (12.0-16.0); Mean Corpuscular HGB Conc 32 g/dL (31-36); Mean Corpuscular Hemoglobin 27 pg (27-31); Mean Corpuscular Volume 84 fL (80-97); Mean Platelet Volume 8.6 fL (7.4-10.4); Platelet Count 242 10^3/uL (150-450); Red Blood Count 3.74 10^6 /uL (3.70-4.87); Red Cell Distribution Width 18 % (10.5-15); White Blood Count 26.5 10^3/uL (3.5-10.8)
[2018-09-09 09:23] LABS: EGFR African American 8.9 (>60); EGFR Non-African American 7.4 (>60)
[2018-09-09 09:35] LABS: ABS Basophils 0.1 10^3/ul (0-0.2); ABS Eosinophils 0 10^3/ul (0-0.6); ABS Lymphocytes 0.4 10^3/ul (1.0-4.8); ABS Monocytes 1.2 10^3/ul (0-0.8); ABS Neutrophils 24.8 10^3/ul (1.5-7.7); ABS Nucleated RBC 0.1 10^3/ul; Eosinophil % 0.1 %; Lymphocyte % 1.5 %; Nucleated Red Blood Cells % 0.2
[2018-09-09] MEDS: Heparin DRIP 25,000 UNITS(*) 25,000 UNITS/500 ML BAG IV SCH (12:40)
--- NOTE | 2018-09-09 14:05 | PN ---
Subjective Date of Service: 09/09/18 Interval History: Ms. London is frustrated this morning. She was sleeping on my arrival and when asked how she felt she responded "terrible." Reports continued abd pain. Not able to have a productive conversation as she repeatedly stated "you're killing me" and "I just want something to drink." She continues to decline surgery or any invasive measures, but goes on to say "you're not doing anything for me." Would not want dialysis. Not willing to have a conversation about code status. Nursing reports that she has been making statements such as "I want to " and is frequently requesting something to drink. Family History: Unchanged from Admission Social History: Unchanged from Admission Past Medical History: Unchanged from Admission Objective Active Medications: Acetaminophen (Tylenol Supp*) 650 mg ME Q6H PRN FEVER/PAIN Dextrose (D50w Syringe 50 Ml*) 12.5 gm IV PUSH .FOR FS < 60 - SS PRN FS < 60 Heparin Sodium (Porcine) (Heparin Flush Picc/Ml/Cvc(*)) 1 - 3 ml FLUSH 0600, 1800 [facility]; Protocol Heparin Sodium (Porcine) (Heparin Vial(*)) 0 units IV .PER PROTOCOL [facility] Piperacillin Sod/Tazobactam (Sod 3.375 gm/ Sodium Chloride) 100 mls @ 25 mls/ hr IVPB Q12HR [facility] Dextrose/Sodium Chloride (D5ns 0.9% 1000 Ml Bag*) 1,000 mls @ 125 mls/hr IV PER RATE [facility] Heparin Sodium/Dextrose (Heparin Drip 25,000 Units(*)) 25,000 units in 500 mls @ 0 mls/hr IV PER RATE [facility]; Protocol Metoprolol Tartrate (Lopressor Iv*) 10 mg IV Q6H [facility] Mometasone Furoate/Formoterol Fumar (Dulera 200/5 Mdi*) 2 puff INH BID [facility] Morphine Sulfate (Morphine Inj ((Syringe))*) 2 mg IV Q4H PRN PAIN - MILD Ondansetron HCl (Zofran Inj*) 4 mg IV Q6H PRN NAUSEA Pantoprazole Sodium (Protonix Iv*) 40 mg IV Q24H [facility] Tiotropium [place] (Spiriva Cap.Inh*) 1 cap INH DAILY [facility] Vital Signs - 8 hr 09/09/18 09/09/18 09/09/18 08:00 08:33 09:05 Temperature 97.5 F Pulse Rate 99 Respiratory 16 16 22 Rate Blood Pressure 136/41 (mmHg) O2 Sat by Pulse 98 Oximetry 09/09/18 09/09/18 09/09/18 10:44 12:25 12:31 Temperature 97.5 F Pulse Rate 105 Respiratory 20 16 20 Rate Blood Pressure 144/93 (mmHg) O2 Sat by Pulse 99 Oximetry Oxygen Devices in Use Now: Nasal Cannula - 2L Appearance: Middle-aged female sitting in bed in NAD; Agitated Eyes: No Scleral Icterus Ears/Nose/Mouth/Throat: Mucous Membranes Moist Neck: NL Appearance and Movements; NL JVP, Trachea Midline Respiratory: Symmetrical Chest Expansion and Respiratory Effort, Clear to Auscultation Cardiovascular: NL Sounds; No Murmurs; No JVD, RRR Abdominal: - - Large, round, distended, no BS auscultated Neurological: - - Oriented to self and place, does not understand situation Lines/Tubes/Other Access: Clean, Dry and Intact Peripheral IV Result Diagrams: 09/09/18 08:45 09/09/18 08:45 Assess/Plan/Problems-Billing Assessment: Ms. London is a 68 yo F with PMH of dCHF, DM2, afib, HARVEY, HTN, HLD, CKD stage 3 , chronic hypoxic respiratory failure on 3-5L NC at baseline; who presented to the ED with c/o abd pain and nausea and was found to have an SBO. - Patient Problems (1) Small bowel obstruction Code(s): K56.609 - UNSP INTESTNL OBST, UNSP TO PARTIAL VERSUS COMPLETE OBST Comment: - Differentials include infection vs ischemia - NG tube in place; may have clear liquids to appease her - Appreciate Surgery consult; she is a very poor surgical candidate and she is declining any surgery or invasive measures at this time - Surgery is following distantly in the event she chooses to pursue surgery - Continue Zosyn, IVF (2) Hmszs-tk-eakopzx kidney injury Code(s): N17.9 - ACUTE KIDNEY FAILURE, UNSPECIFIED; N18.9 - CHRONIC KIDNEY DISEASE, UNSPECIFIED Comment: - Baseline CKD stage 3, creatinine increased from baseline and not improving with IVF - FENa 0.6% indicating pre-renal source, secondary to hypovolemia - Appreciate Nephrology consult - She would not want dialysis if she developed ESRD - Bolus another 3L today (3) Sepsis Comment: - Met criteria on admission with fever, tachycardia, tachypnea, lactic acidosis ; peritonitis is likely source - Received fluid bolus - Still has marked leukocytosis with bands - Caution with IVF d/t history of CHF - Plan as above (4) Diastolic congestive heart failure Code(s): I50.30 - UNSPECIFIED DIASTOLIC (CONGESTIVE) HEART FAILURE Comment: - Not in exacerbation - Echo shows EF 55-60% - Hold furosemide d/t hypovolemia - Continue metoprolol (5) Chronic respiratory failure with hypoxia Comment: - No acute changes - Continue oxygen to maintain sats >92% (6) Atrial fibrillation Code(s): I48.91 - UNSPECIFIED ATRIAL FIBRILLATION Comment: - Rate controlled, paced - Placed on heparin drip on admission as she typically takes warfarin, though this was stopped the day after admission d/t possible need for surgery - Restart heparin drip today as there is only a small chance she will ultimately have surgery and she is at extremely high risk for thrombus - Continue metoprolol IV while NPO; will add diltiazem IV if rate becomes tachycardic (7) Hypertension Code(s): I10 - ESSENTIAL (PRIMARY) HYPERTENSION Comment: - Normotensive, SBP 100-140s - Continue metoprolol (8) Type 2 diabetes mellitus Comment: - Recent A1c in July was 7.1% - Insulin stopped d/t hypoglycemia (9) HARVEY (obstructive sleep apnea) Code(s): G47.33 - OBSTRUCTIVE SLEEP APNEA (ADULT) (PEDIATRIC) Comment: - CPAP (10) Hyperlipidemia Code(s): E78.5 - HYPERLIPIDEMIA, UNSPECIFIED Comment: - Hold statin while NPO (11) DVT prophylaxis Comment: - Heparin SQ (12) Full code status Code(s): Z78.9 - OTHER SPECIFIED HEALTH STATUS Comment: Status and Disposition: Inpatient. Anticipate d/c home when medically stable, though prognosis is guarded. She did sign a DNR/DNI with Dr. Tavares this morning. Attending: Adrianne Gordon
[2018-09-09] MEDS: Pantoprazole IV* 40 MG IV SCH (17:02)
[2018-09-09 18:00] LABS: Magnesium/Creatinine Ratio 0.019 mg/mg (>=0.035)
--- NOTE | 2018-09-09 22:08 | PN ---
AMENDED REPORT NOW INCLUDES DATE OF SERVICE - ESIGNED BEFORE ADJUSTMENT PROGRESS NOTE: DATE OF SERVICE: 09/09/18 HISTORY: I had seen Ms. London in the office for a few years previously. I saw her yesterday in consultation. She seemed quite miserable to me. She was complaining that she did not want to live anymore. She was blaming the nursing staff because they would not give her any water to drink or just some kyleigh matt. If they had done so, she would be just fine. She denied abdominal pain. She denied nausea and vomiting, but interestingly enough while she stated that she had not had a recent bowel movement, she did state later in my interview that all she does is "puke and shit." She denied being short of breath, but she states she has no energy to do anything, all she does is lie around all day long. In the past, she has rejected the concept of renal replacement therapy by dialysis. She reiterated this again to me and stated that dialysis was dying. She had been interviewed about DNR, and apparently, she is willing to accept chest compressions, but no intubation or other heroics. She seems somewhat internally inconsistent in her directions for us. She has refused a surgical intervention into her small bowel obstruction. She has been in significant positive fluid balance over the past few days and is putting out a reasonable amount of urine at the present time, although she remains in positive fluid balance. Her chest reveals very distant breath sounds. The heart revealed a regular rhythm. I did not hear any murmurs. Her abdomen was silent, but nontender. She had 1+ edema. Her blood pressure has typically been in the 130 to 140 range systolic. Pulse has typically been around 100. She has an elevated white count of 26,500, hemoglobin 10.1, platelet count of 242,000. Sodium of 137, potassium 3.7, chloride 109, total CO2 of 15, lactic acid 1, BUN 72, creatinine 5.74. She has had a very low fractional excretion of sodium, in that her urinary sodium concentration was unmeasurable at less than 18. In the past while she had renal insufficiency, it was not nearly this bad. She had had a serum creatinine of 2.04 on 09/04. IMPRESSION: Acute renal failure on a prerenal basis even in the phase of receiving significant and aggressive fluid resuscitation. I think this is probably due to third spacing of fluid because of sepsis and small bowel obstruction. PLAN: Since she states that she does not want to live and since most of the necessary interventions will require a consent, which she has denied, I think at this point we are forced into a comfort based mode of therapy, and at the present time, I would suggest that we start no new investigations and treat her as required for pain and probably she will require alf placement. I have discussed this with Gertrude Marks NP, and I have discussed that with Court Tavares MD, and they are in concurrence with my opinion. [id number]/CPS #: [id number] MTDD
[2018-09-10] MEDS: Metoprolol Tartrate IV* 1 MG/ML 5 ML VIAL IV SCH ×4 (01:04→17:31)
[2018-09-10 04:35] LABS: Hematocrit 32 % (33-41); Hemoglobin 10.1 g/dL (12.0-16.0); Mean Corpuscular HGB Conc 32 g/dL (31-36); Mean Corpuscular Hemoglobin 27 pg (27-31); Mean Corpuscular Volume 85 fL (80-97); Mean Platelet Volume 8.9 fL (7.4-10.4); Platelet Count 242 10^3/uL (150-450); Red Blood Count 3.75 10^6 /uL (3.70-4.87); Red Cell Distribution Width 18 % (10.5-15)
[2018-09-10 04:49] LABS: BUN/Creatinine Ratio 11.9 (8-20); Calcium 7.3 mg/dL (8.6-10.3); EGFR African American 8.4 (>60); Potassium 3.8 mmol/L (3.5-5.0)
[2018-09-10 04:59] LABS: Immature Granulocytes 2 % (0-9); Lymphocytes % 2 %; Monocytes % 5 %; Myelocytes % 2 % (0-1); Neutrophil % 91 %
[2018-09-10 05:01] LABS: ABS Neutrophils 32.55 10^3/ul (1.5-7.7)
[2018-09-10] MEDS: Tiotropium CAP.INH* CAP.INH/18 MCG (USE ORDER SET !) INH SCH (07:03)
[2018-09-10] MEDS: Mometasone/Formoter 200/5 MDI INH SCH ×2 (07:03→20:03)
[2018-09-10] MEDS: D5NS 0.9% 1000 ML BAG* 1,000 ML IV SCH (08:42)
[2018-09-10] MEDS: ZOSYN 3.375 GM Q12H per EXTENDED INFUSION IVPB SCH ×2 (08:42)
--- NOTE | 2018-09-10 09:44 | PN ---
Subjective Date of Service: 09/10/18 Interval History: Ms. London's only complaint with me today is that her back is itching and that she is thirsty. She only reports abdominal pain with palpation. She denies chest pain or SOB. Family History: Unchanged from Admission Social History: Unchanged from Admission Past Medical History: Unchanged from Admission Objective Active Medications: Acetaminophen (Tylenol Supp*) 650 mg WI Q6H PRN Dextrose (D50w Syringe 50 Ml*) 12.5 gm IV PUSH .FOR FS < 60 - SS PRN Heparin Sodium (Porcine) (Heparin Flush Picc/Ml/Cvc(*)) 1 - 3 ml FLUSH 0600, 1800 VANESSA; Protocol Heparin Sodium (Porcine) (Heparin Vial(*)) 0 units IV .PER PROTOCOL [facility] Piperacillin Sod/Tazobactam (Sod 3.375 gm/ Sodium Chloride) 100 mls @ 25 mls/ hr IVPB Q12HR [facility] Dextrose/Sodium Chloride (D5ns 0.9% 1000 Ml Bag*) 1,000 mls @ 125 mls/hr IV PER RATE VANESSA Heparin Sodium/Dextrose (Heparin Drip 25,000 Units(*)) 25,000 units in 500 mls @ 0 mls/hr IV PER RATE VANESSA; Protocol Metoprolol Tartrate (Lopressor Iv*) 10 mg IV Q6H [facility] Mometasone Furoate/Formoterol Fumar (Dulera 200/5 Mdi*) 2 puff INH BID [facility] Morphine Sulfate (Morphine Inj (Syringe))*) 3 mg IV Q4H PRN Ondansetron HCl (Zofran Inj*) 4 mg IV Q6H PRN Pantoprazole Sodium (Protonix Iv*) 40 mg IV Q24H [facility] Pharmacy Consult (Zosyn Per Pharmacy*) 1 note FOLLOW UP . PRN Tiotropium [place] (Spiriva Cap.Inh*) 1 cap INH DAILY [facility] Vital Signs: Temp Pulse Resp BP Pulse Ox 97.8 F 86 18 154/82 95 09/10/18 08:31 09/10/18 08:31 09/10/18 08:56 09/10/18 08:31 09/10/18 08:31 Oxygen Devices in Use Now: Nasal Cannula Appearance: Female lying in bed in NAD Eyes: No Scleral Icterus Ears/Nose/Mouth/Throat: Mucous Membranes Moist Respiratory: Symmetrical Chest Expansion and Respiratory Effort, Clear to Auscultation Cardiovascular: NL Sounds; No Murmurs; No JVD Abdominal: - - Firm in the upper to mid quadrants, pain with mild palpation in these areas, no guarding Skin: No Rash or Ulcers Neurological: Alert and Oriented x 3, NL Muscle Strength and Tone, - - Yelling and cursing Nutrition: Taking PO's Result Diagrams: 09/10/18 04:15 09/11/18 07:02 Microbiology and Other Data: . Assess/Plan/Problems-Billing Assessment: Ms. London is a 68 yo F with PMH of dCHF, DM2, afib, HARVEY, HTN, HLD, CKD stage 3 , chronic hypoxic respiratory failure on 3-5L NC at baseline; who presented to the ED with c/o abd pain and nausea and was found to have an SBO now with acute renal failure. - Patient Problems (1) Sepsis Comment: - Ongoing - Met criteria on admission with fever, tachycardia, tachypnea, lactic acidosis ; peritonitis is likely source - Still has marked leukocytosis with bands (2) Small bowel obstruction Comment: - Differentials include infection vs ischemia - NG tube in place; may have clear liquids - Appreciate Surgery consult; she is a very poor surgical candidate and she is declining any surgery or invasive measures at this time - Surgery is following distantly in the event she chooses to pursue surgery - Switch to cipro and flagyl given acute kidney injury - Continue to attempt to discuss goals of care with , unable to reach him today, discussed poor prognosis with his daughter (3) Ittqt-vg-yerrjjh kidney injury Comment: - Worsening - Baseline CKD stage 3, creatinine increased from baseline and not improving with IVF - FENa 0.6% indicating pre-renal source, secondary to hypovolemia, also could be related to interstial nephritis from zosyn (switched to cipro and flagyl) - Appreciate Nephrology consult - She would not want dialysis if she developed ESRD (4) Atrial fibrillation Comment: - Rate controlled, paced - Heparin gtt stopped, not indicated as patient has no history of stroke - Continue metoprolol IV while NPO; will add diltiazem IV if rate becomes tachycardic (5) Chronic respiratory failure with hypoxia Comment: - No acute changes - Continue oxygen to maintain sats >92% (6) Diastolic congestive heart failure Comment: - Not in exacerbation - Echo shows EF 55-60% - Hold furosemide d/t hypovolemia - Continue metoprolol (7) Hypertension Comment: - Normotensive, SBP 100-140s - Continue metoprolol (8) HARVEY (obstructive sleep apnea) Comment: - CPAP (9) Type 2 diabetes mellitus Comment: - Recent A1c in July was 7.1% - Insulin stopped d/t hypoglycemia (10) DVT prophylaxis Comment: - Heparin IV (11) DNR (do not resuscitate) Comment: Status and Disposition: Inpatient. Prognosis is guarded, if survives she would likely need RICARDO. Continue to address goals of care with patient and family.
[2018-09-10] MEDS: Heparin DRIP 25,000 UNITS(*) 25,000 UNITS/500 ML BAG IV SCH (13:07)
[2018-09-10] MEDS ORDERED: metroNIDAZOLE IV 500 MG/100ML* 500 MG/100 ML BAG IVPB SCH (15:00)
[2018-09-10] MEDS: Ciprofloxacin 400MG IVPREMIX(* 400 MG/200 ML BAG IVPB SCH (15:23)
[2018-09-10] MEDS: metroNIDAZOLE IV 500 MG/100ML* 500 MG/100 ML BAG IVPB SCH (16:24)
[2018-09-10] MEDS: Morphine INJ* 2 MG/ML 1 ML SYRINGE (TWO MG - NEW SYRINGE VERSION) IV PRN ×2 (16:30→20:41)
[2018-09-10] MEDS: Pantoprazole IV* 40 MG IV SCH (19:48)
[2018-09-10] MEDS ORDERED: Ciprofloxacin 400MG IVPREMIX(* 400 MG/200 ML BAG IVPB SCH (21:00)
[2018-09-11] MEDS ORDERED: LORazepam INJ* 2 MG/ML 1 ML VIAL ONE (00:19)
[2018-09-11] MEDS: Morphine INJ* 2 MG/ML 1 ML SYRINGE (TWO MG - NEW SYRINGE VERSION) IV PRN (00:21)
[2018-09-11] MEDS: LORazepam INJ* 2 MG/ML 1 ML VIAL IV PUSH PRN ×2 (00:22→15:09)
[2018-09-11] MEDS: D5NS 0.9% 1000 ML BAG* 1,000 ML IV SCH (00:25)
[2018-09-11] MEDS: Metoprolol Tartrate IV* 1 MG/ML 5 ML VIAL IV SCH ×3 (00:47→10:48)
[2018-09-11] MEDS: metroNIDAZOLE IV 500 MG/100ML* 500 MG/100 ML BAG IVPB SCH (04:02)
[2018-09-11] MEDS ORDERED: D5NS 0.9% 1000 ML BAG* 1,000 ML IV SCH (05:04)
[2018-09-11] MEDS: Tiotropium CAP.INH* CAP.INH/18 MCG (USE ORDER SET !) INH SCH (07:18)
[2018-09-11] MEDS: Mometasone/Formoter 200/5 MDI INH SCH (07:18)
[2018-09-11 07:31] LABS: Calcium 7.3 mg/dL (8.6-10.3); Potassium 4.3 mmol/L (3.5-5.0)
[2018-09-11 07:37] LABS: BUN/Creatinine Ratio 12.3 (8-20); EGFR African American 8.2 (>60); EGFR Non-African American 6.8 (>60)
[2018-09-11] MEDS ORDERED: Sodium Bicarbonate 8.4% IV* 150 MEQ in D5W 1000 ML BAG* 1,000 ML IVPB SCH (08:00)
--- NOTE | 2018-09-11 08:05 | PN ---
Subjective Date of Service: 09/11/18 Interval History: Ms. London is not very interactive with care today. She does awaken to voice but becomes angry and wants to be left alone. She is not able to participate or offer complaint reliably. Family History: Unchanged from Admission Social History: Unchanged from Admission Past Medical History: Unchanged from Admission Objective Active Medications: Acetaminophen (Tylenol Supp*) 650 mg IA Q6H PRN Dextrose (D50w Syringe 50 Ml*) 12.5 gm IV PUSH .FOR FS < 60 - SS PRN Ciprofloxacin/Dextrose (Cipro 400 Mg Ivpremix(*)) 400 mg in 200 mls @ 200 mls/ hr IVPB Q24H [facility] Metronidazole/Sodium Chloride (Flagyl 500 Mg Ivpb*) 500 mg in 100 mls @ 100 mls /hr IVPB Q12H [facility] Dextrose/Sodium Chloride (D5ns 0.9% 1000 Ml Bag*) 1,000 mls @ 75 mls/hr IV PER RATE [facility]ANESSA Sodium Bicarbonate 150 meq/ (Dextrose) 1,150 mls @ 75 mls/hr IVPB Q15H [facility] Lorazepam (Ativan Inj*) 1 mg IV PUSH Q6H PRN Metoprolol Tartrate (Lopressor Iv*) 10 mg IV Q6H [facility] Mometasone Furoate/Formoterol Fumar (Dulera 200/5 Mdi*) 2 puff INH BID [facility] Morphine Sulfate (Morphine Inj (Syringe))*) 3 mg IV Q3H PRN Ondansetron HCl (Zofran Inj*) 4 mg IV Q6H PRN Pantoprazole Sodium (Protonix Iv*) 40 mg IV Q24H [facility] Tiotropium [place] (Spiriva Cap.Inh*) 1 cap INH DAILY [facility] Vital Signs: Temp Pulse Resp BP Pulse Ox 97.5 F 100 16 107/39 97 09/11/18 03:41 09/11/18 03:41 09/11/18 03:41 09/11/18 03:41 09/11/18 03:41 Oxygen Devices in Use Now: Nasal Cannula Appearance: Female lying in bed in NAD Eyes: No Scleral Icterus Ears/Nose/Mouth/Throat: - - Mucous membranes dry Neck: NL Appearance and Movements; NL JVP Respiratory: Symmetrical Chest Expansion and Respiratory Effort, Clear to Auscultation Cardiovascular: NL Sounds; No Murmurs; No JVD, - - + edema BLE Abdominal: - - distended, pain with palpation primarily in mid to upper left quadrant, no rebound or guarding apparent but difficult to assess given mentation and body habitus Neurological: - - Awakens to voice, does not answer questions reliably or follow commands reliably Result Diagrams: 09/10/18 04:15 09/11/18 07:02 Microbiology and Other Data: . Assess/Plan/Problems-Billing Assessment: Ms. London is a 68 yo F with PMH of dCHF, DM2, afib, HARVEY, HTN, HLD, CKD stage 3 , chronic hypoxic respiratory failure on 3-5L NC at baseline; who presented to the ED with c/o abd pain and nausea and was found to have an SBO now with acute renal failure. - Patient Problems (1) Sepsis Comment: - Ongoing - Met criteria on admission with fever, tachycardia, tachypnea, lactic acidosis ; peritonitis is likely source - Still has marked leukocytosis with bands (2) Small bowel obstruction Comment: - Ongoing, no evidence of acute abdomen - Differentials include infection vs ischemia - NG tube in place; may have clear liquids for comfort - Appreciate Surgery consult; she is a very poor surgical candidate and she is declining any surgery or invasive measures at this time - Switch to cipro and flagyl given acute kidney injury - Patient has consistently stated that she did not want surgical intervention. However, patient's family feels that her refusal was simply part of her personality and fear of pain more than a clear understanding of the risks of surgery and other interventions. Prolonged discussions undertaken with patient' s and daughter with support from Dr. Soto. Patient's is the health care proxy and wants to have surgical options re-considered. I discussed the case with Dr. Osullivan who recommends that since she does not have an acute abdomen that medical optimization should be atttempted. Discussed case with Dr. Alex who notes that patient had told him directly that she would not want dialysis both during this hospitalization and previously. He noted that if the HCP's preference were to over ride the patient's wishes, then dialysis could be performed today. However, emergent dialysis is not available at our facility today. Therefore, called [facility] regarding potential transfer for dialysis and surgery if needed thereafter. Surgeon at [facility] discussed this difficult case with patient's and noted her poor prognosis but accepted transfer to at least assess and discuss the risks and benefits of further intervention. Family accepting. (3) Pkalc-nl-hxjxgax kidney injury Comment: - Worsening - Baseline CKD stage 3, creatinine increased from baseline and not improving with IVF - FENa 0.6% indicating pre-renal source, secondary to hypovolemia, also could be related to interstial nephritis from zosyn (switched to cipro and flagyl) - Appreciate Nephrology consult. She would not want dialysis if she developed ESRD - Sodium bicarb started for metabolic acidosis (4) Atrial fibrillation Comment: - Rate controlled, paced - Heparin gtt stopped, not indicated as patient has no history of stroke - Continue metoprolol IV while NPO; will add diltiazem IV if rate becomes tachycardic (5) Chronic respiratory failure with hypoxia Comment: - No acute changes - Continue oxygen to maintain sats >92% (6) Diastolic congestive heart failure Comment: - Not in exacerbation - Echo shows EF 55-60% - Hold furosemide d/t hypovolemia - Continue metoprolol (7) Hypertension Comment: - Normotensive, SBP 100-140s - Continue metoprolol (8) HARVEY (obstructive sleep apnea) Comment: - CPAP (9) Type 2 diabetes mellitus Comment: - Recent A1c in July was 7.1% - Insulin stopped d/t hypoglycemia (10) DVT prophylaxis Comment: - Heparin IV (11) DNR (do not resuscitate) Comment: Status and Disposition: Transfer to [facility] for emergent dialysis and possible abdominal surgery for SBO.
--- NOTE | 2018-09-11 15:28 | PN ---
Hospitalist Progress Note Date of Service: 09/11/18 HOSPITALIST ADDENDUM Contacted by Joan Woodruff EXPANDER MACHINE OPERATOR about this case. Mrs London is a 68yo F with PMH of morbid obesity with BMI 65, CHF, DM, Afib, HARVEY, HTN, HLD, CKD, chronic respiratory failure, admitted with sepsis, peritonitis, SBO, SINAN. Seen by General Surgery: Dr Luong's note documents he reviewed risks and benefits with patient and - patient did not want to proceed with any surgical intervention due to her personal belief that she did not want to be kept alive with life sustaining equipment. Patient's family has elected to pursue aggressive therapy. Family meeting with Ethics membership coordinator present was pursued and the family wishes are still the same. Arrangements were made for her transfer to a higher level of care at [facility]. As per Joan Woodruff, [facility] surgeon explained her poor prognosis and the fact she'll need trach/ventilator/PEG/dyalisis, and family continues to be in agreement with aggressive therapy. Transfer arrangements already done.
[2018-09-11] MEDS: Ciprofloxacin 400MG IVPREMIX(* 400 MG/200 ML BAG IVPB SCH (15:50)
--- NOTE | 2018-09-11 17:55 | DS ---
CC: Dr. Husain * DISCHARGE SUMMARY: DATE OF ADMISSION: 09/04/18 DATE OF TRANSFER: To [facility] 09/11/18 PRIMARY CARE PHYSICIAN: Dr. Husain ATTENDING PHYSICIAN: Dr. Clarisa Lopez * (dictation provided by Joan Woodruff NP ). PRIMARY DIAGNOSES: 1. Small bowel obstruction not resolved. 2. Acute renal failure. 3. Metabolic acidosis. SECONDARY DIAGNOSES: 1. Chronic obstructive pulmonary disease and obesity hypoventilation syndrome with chronic hypoxic respiratory failure on 3 to 4 liters nasal cannula at home. 2. Insulin dependent type 2 diabetes. 3. Morbid obesity with a BMI of 65. 4. Sleep apnea. 5. Atrial fibrillation on chronic Coumadin therapy. 6. Anemia. 7. Hypertension. 8. Hyperlipidemia. 9. Vitamin D deficiency. 10. History of skin cancer. 11. Prior CKD stage 3. 12. Pacemaker implementation. MEDICATIONS: Medications currently inpatient are: 1. Tylenol suppository p.r.n. 2. Ciprofloxacin 400 mg every 24 hours. 3. Lorazepam 1 mg IV every 6 hours p.r.n. agitation. 4. Metoprolol tartrate 10 mg IV every 6 hours p.r.n. rapid atrial fibrillation. 5. Metronidazole 500 mg every 12 hours. 6. Mometasone/formoterol 2 puffs inhaled b.i.d. 7. Ondansetron IV p.r.n. 8. Pantoprazole 40 mg IV every 24 hours. 9. Sodium bicarbonate 8.4% 150 mEq in D5W at 75 mL/hr. 10. Spiriva daily. HOSPITAL COURSE: Ms. London is a 68-year-old female with a past medical history of chronic hypoxic respiratory failure, super morbid obesity with BMI of 66, and insulin dependent type 2 diabetes who presented to the hospital on 09/04/18 with concern for abdominal pain and nausea for 3 days. Please see the dictated H&P from Fatemeh Borja NP for complete details. In brief, in the emergency room, the patient had an elevated white blood cell count at 14.4, a lactic acid of 3, a CRP of 273.55. The patient had a CT of abdomen and pelvis which was read as follows: "Small bowel obstruction, pericardial effusion, and atherosclerosis". Patient was admitted to the hospital for small bowel obstruction. Mrs. London had immediate consultation with Dr. Nunez from our surgical services team and I refer you to his note for complete details. In brief, he notes the patient had no previous abdominal surgeries. He noted her abdomen was markedly obese with diffuse tenderness with no rebound, peritonitis or guarding. He disagreed with the report by the radiologist and noted that she had a dilated stomach, dilated small bowel, virtually all the small bowel was dilated. There was a decompressed small bowel in the right lower quadrant, however the transverse colon was moderately dilated with loops measuring up to 10 cm in diameter. Also there is a long loop of sigmoid that is right under the hepatic flexure. This is only mildly dilated maybe up to 6 cm. The descending and proximal sigmoid colon are decompressed, as is the distal sigmoid and rectum. He recommended at that point that the patient have nasogastric tube placement and bowel rest, with serial examinations with hope that this would pass without surgical intervention. By 7 a.m. the following morning the patient had tenderness throughout her abdomen, left greater than right, with elevated increasing WBC and lactic acidosis, and therefore the reimbursement consultant surgeon was asked to conversate with the family and the patient. I refer you to that note from Dr. Luong for complete details. He confirms the worsening abdominal pain and bowel obstruction. For the completeness sake I will read directly from Dr. Luong's note. "I discussed all the findings above several times in several different visits over the course of the morning with the patient. I was not able to initially contact her on the phone. The patient was on intravenous heparin as a bridge for her Coumadin and this was discontinued. In the light of her laboratory changes and her physical examination I did feel that diagnostic laparoscopy, at a minimum, and probably an exploratory laparotomy was indicated to rule out intraabdominal source of sepsis, i.e. possible bowel obstruction with internal hernia and ischemia or primary mesenteric ischemia. She does have a recent history of diarrhea, nausea and vomiting. This also may be an infectious etiology that does not require surgical intervention, but I cannot be sure of that at this time. After my discussion with her she felt that in previous discussions with her primary care provider, Dr. Husain, that she was not an operative candidate and was told that she would not survive surgery. I did discuss this with her and explain to her that certainly she is at very high risk for any surgical intervention in terms of her pulmonary status, morbid obesity, chronic renal insufficiency with possibility of [facility] ventilatory dependence, prolonged ICU stay and the possibility of . I also explained clearly that if there is a surgical etiology to her abdominal findings and sepsis, and if this is not remedied with surgery, she will not survive. After a long discussion with her and discussing the pros and risk, benefits and alternatives to surgery, and also in discussion with her who did come into the hospital, she has decided that she would not like to proceed with any surgical due to high risk and her personal belief that she does not want to be kept alive or on roasterman possible life sustaining medications and equipment that may be necessary after surgery." Patient's kidney function on arrival showed a BUN of 36 with a creatinine of 2.04. Without surgery and despite aggressive hydration, patient's BUN and creatinine continued to rise. She was seen in consultation by her preschool adviser, Dr. Ozzy Alex, on 09/09/18 for this reason. He agreed that she may still be somewhat pre- renal and recommended intravenous fluids which were undertaken. However, he did also speak with the patient and I will read from his note directly. "In the past, she has rejected the concept of renal replacement therapy by dialysis. She reiterated this again to me and stated that dialysis was dying." "She seems somewhat internally inconsistent in her directions for us. She has refused a surgical intervention into her small bowel obstruction." Dr. Alex then states " Since she states that she does not want to live and since most of the necessary interventions will require a consent, which she has denied, I think at this point we are forced into a comfort based mode of therapy , and at the present time, I would suggest that we start no new investigations and treat her as required for pain". We did obtain an abdominal bladder ultrasound that was read as follows "markedly limited exam due to obese body habitus and bowel gas, negative for hydronephrosis. Moderate bilateral renal cortical atrophy." Because of Lita's situation and refusal of dialysis and surgical intervention , and declining status with very poor prognosis, she was seen in consultation by our palliative care team and I will read from that note for you for completeness sake. "Long discussion with patient and about patient's medical conditions and prognosis. Patient spends most of her time in a recliner , walks with a walker. Describes herself as having a miserable existence, but then says she wants to live. We talked about a MOLST form. She wants CPR but does not want to be intubated. She enjoys going out with old coworkers. Currently her view of things is skewed because she is having pain. When asked about dialysis she did not want hemodialysis and was not sure about peritoneal. " She goes on to say in a separate section that patient states "Long conversation with patient that she just wants to be comfortable discussed MOLST in presence of nurse and she does not want CPR intubation. She did not give an opinion about fluids or antibiotics. We also discussed prognosis which is very poor which she is aware. We also discussed placement with either hospice residence or [facility]. Will wait to discuss with when he comes in. Have not been able to reach him." I first met Mrs. London on 09/10/18. At that time she was awake and generally oriented, yelling at myself and nursing staff that she wanted to be left alone. Based on the aforementioned hospital course which I have detailed here for you, it was understanding that the patient did not want surgery, did not want hemodialysis and that based on Dr. Tavares's consultation that the overall consideration was for comfort care. Yesterday morning I made multiple attempts to reach out the patient's . Unfortunately, his mailbox on his phone was full and I was unable to leave a message. I therefore did discuss with case with the patient's daughter who stated that she would help me get in touch with the . Unfortunately he did not arrive until late in the evening. He did not offer any indication regarding his goals of care with nursing staff in the evening, but stated that he would return at 9 a.m. today. Today, as soon as the patient and the daughter were at the bedside, myself and Dr. Shekhar Soto discussed the current situation with the patient at length including the patient 's poor prognosis, the patient's previously stated wish to not have any of the above noted treatments that had been offered extensively, and what would be in the patient's best interest at this point. The patient's family states that the patient has "always refused care, that she is deathly afraid of pain, that she barely participates at all with medical care or follows medical directions because of her fear of pain or discomfort. They felt that her refusal of services that had been offered previously during the hospitalization were more reflective of her fears and personality quirks, than a true reflection of her best interest, and that she would not want to . Patient's noted that during a period of lucidity last evening the patient had questioned whether or not going to another facility might be of benefit to her. This was all reviewed with Dr. Lopez the attending physician today. I reviewed the change in plans with the reimbursement consultant surgeon, Dr. Osullivan, who indicated that surgery would not be indicated until she was medically optimized and that consideration of hemodialysis should be undertaken. I reviewed this with Dr. Alex who had previously met with the patient. He strongly indicated his reluctance to proceed with dialysis given the fact that he had had a clear conversation with the patient previous to her lack of capacity when which she stated she would not want dialysis. However, if it was felt that the health care proxy's desires overrode hers that dialysis could be considered. Unfortunately dialysis is not available at our hospital today. I reviewed all of this with Dr. Reyna at [facility]. He also spoke directly with the patient's hospital on the phone and indicated to him that he was very concerned about the patient's grave prognosis, and that he suspected that the patient would likely have a tracheostomy, a feeding tube, a colostomy, an open abdomen and be on dialysis in order to survive her current state. Patient's stated that he was aware of this, but felt that this was her only chance to live and wanted to proceed. Dr. Reyna did not offer surgery specifically, but did say that he would happily accept the patient for further discussion and analysis of risk and benefits with them. Mrs. London is to be transferred to [facility] today. DISPOSITION: [facility]. DIET: NPO. ACTIVITY: Bedrest. FOLLOWUP PLANS: Please followup with Dr. Husain at the time of discharge from [facility]. TIME SPENT: Approximately 90 minutes was spent on the discharge of this patient with more than half the time spent with the patient at bedside reviewing the events leading up to and during this hospitalization with the family, performing the physical examination and reviewing the ethical considerations of this case, and reviewing the goals of care, and reviewing plans for transfer. JOAN WOODRUFF, ROCIO [id number]/[facility] #: [id number] MADELAINE
[2018-09-11 18:41] VITALS: BP 111/43
== END 2018-09-11 19:19 | disposition short-term general hospital (02) | DRG 871 ==
LOC: ED 12:19 → SSU 17:29 → OBSVTOIN 09-05 13:20 → MED 09-08 12:03
PROVIDERS: ADMIT Internal Medicine; ATTEND Internal Medicine
PROC: 05HY33Z Insertion of Infusion Device into Upper Vein, Percutaneous Approach (ICD-10-PCS; principal; 2018-09-07)
PROC: 5A09457 Assistance with Respiratory Ventilation, 24-96 Consecutive Hours, Continuous Positive Airway Pressure (ICD-10-PCS; 2018-09-08)
DX: A41.9 Sepsis, unspecified organism (principal); K65.9 Peritonitis, unspecified; N17.9 Acute kidney failure, unspecified; K56.609 Unspecified intestinal obstruction, unspecified as to partial versus complete obstruction; J96.11 Chronic respiratory failure with hypoxia; E87.2 Acidosis; I31.3 Pericardial effusion (noninflammatory); I13.0 Hypertensive heart and chronic kidney disease with heart failure and stage 1 through stage 4 chronic kidney disease, or unspecified chronic kidney disease; I50.30 Unspecified diastolic (congestive) heart failure; Z68.43 Body mass index [BMI] 50.0-59.9, adult; N12 Tubulo-interstitial nephritis, not specified as acute or chronic; E66.2 Morbid (severe) obesity with alveolar hypoventilation; Z68.44 Body mass index [BMI] 60.0-69.9, adult; E11.22 Type 2 diabetes mellitus with diabetic chronic kidney disease; Z99.81 Dependence on supplemental oxygen; I48.91 Unspecified atrial fibrillation; L40.50 Arthropathic psoriasis, unspecified; J44.9 Chronic obstructive pulmonary disease, unspecified; N18.3 Chronic kidney disease, stage 3 (moderate); Z66 Do not resuscitate; D64.9 Anemia, unspecified; E78.5 Hyperlipidemia, unspecified; E55.9 Vitamin D deficiency, unspecified; E86.1 Hypovolemia; R80.9 Proteinuria, unspecified; Z95.0 Presence of cardiac pacemaker; Z85.828 Personal history of other malignant neoplasm of skin; Z79.01 Long term (current) use of anticoagulants; Z79.1 Long term (current) use of non-steroidal anti-inflammatories (NSAID); Z79.4 Long term (current) use of insulin; Z79.51 Long term (current) use of inhaled steroids; Z79.899 Other long term (current) drug therapy; Z91.040 Latex allergy status; Z88.8 Allergy status to other drugs, medicaments and biological substances; Z91.048 Other nonmedicinal substance allergy status; Z87.891 Personal history of nicotine dependence
CPT/HCPCS: 36415; 74176; 76770; 80048; 80053; 81003; 81015; 82565; 82570; 83605; 83690; 83735; 83880; 84100; 84300; 84520; 84545; 85025; 85610; 85730; 86140; 87040; 87086; 93005; 93306; 94640; 94660; 99284; A9270-GY; C1751; C8929; G0378; J0744; J1644; J2060; J2270; J2405; J2543; J3475; J3480; J3490; J7060